=== PATIENT | female | born 1990 | race African-American/Black ===

== ENCOUNTER 2022-01-17 00:53 | Emergency (ER) | payer OTHER, SELFPAY ==
[2022-01-17 01:15] VITALS: BP 160/90; PULSE 109
[2022-01-17 01:50] VITALS: BP 150/74; PULSE 85; RESP 28; TEMP 36.7; O2SAT 100; BMI 33.3
[2022-01-17 01:50] LABS: Basophils Percent Auto 0.5 % (0-2); Eosinophils Absolute Auto 0.1 X10*3/uL (0.0-0.4); Eosinophils Percent Auto 1.4 % (0-4); Hemoglobin 12.6 g/dl (12.0-16.0); Imm Gran Abs Auto 0.01 X10*3/uL (0.00-0.03); Imm Gran Pct Auto 0.2 % (0.0-0.4); Lymphocytes Absolute Auto 2.2 X10*3/uL (1.2-4.9); Lymphocytes Percent Auto 34.9 % (20-40); MANUAL DIFF FLAG NO; Mean Corpuscular Hemoglobin 32.3 pg (27.0-33.0); Mean Corpuscular Volume 92.3 fL (80.0-98.0); Mean Platelet Volume 9.7 fL (9.4-12.3); Monocytes Absolute Auto 0.6 X10*3/uL (0.1-1.2); Monocytes Percent Auto 8.6 % (2-11); Neutrophils Absolute Auto 3.5 x10*3/uL (2.0-8.3); Neutrophils Percent Auto 54.4 % (45-73); Platelet Count 239 X10*3/uL (160-400); Red Cell Distribution Width 11.3 % (11.0-16.0); White Blood Count 6.4 X10*3/uL (4.8-10.8)
[2022-01-17 02:10] LABS: Troponin-I High Sensitivity < 3.5 ng/L (<3.5-17.0)
[2022-01-17 02:14] LABS: Anion Gap 15 (12-20); Blood Urea Nitrogen 14 mg/dL (9-16); Calcium 9.1 mg/dL (8.4-10.2); Carbon Dioxide 24 mmol/L (22-29); Chloride 103 mmol/L (96-108); Creatinine Clr Calc Pharmacy 85.3; Estimated Glomerular Filt Rate > 60; Glucose Fasting 176 mg/dL (60-99); Potassium 3.5 mmol/L (3.3-5.1); Sodium 138 mmol/L (135-145)
--- NOTE | 2022-01-17 03:08 | ECG_ITS ---
Test Reason : PALPATATION Blood Pressure : / mmHG Vent. Rate : 088 BPM Atrial Rate : 088 BPM P-R Int : 156 ms QRS Dur : 090 ms QT Int : 382 ms P-R-T Axes : 048 035 034 degrees QTc Int : 462 ms Normal sinus rhythm with sinus arrhythmia Normal ECG No previous ECGs available Referred By: Martha Fam Electronically Signed By:JET RICE
[2022-01-17 03:43] LABS: Thyroid Stimulating Hormone 1.25 uIU/mL (0.32-4.0)
[2022-01-17 04:47] VITALS: BP 155/74; PULSE 85; RESP 20; O2SAT 98
--- NOTE | 2022-01-17 06:04 | PC.NURSE ---
to note pt discloses to this RN that she consumed chocolate with marijuana in it pt does not normally use marijuana. pt denies other substance use at this time.
[2022-01-17 06:06] VITALS: PULSE 99
--- NOTE | 2022-01-17 06:14 | ED_ITS ---
HPI - General Adult General Chief complaint: General Medical Stated complaint: chest palpations Time Seen by Provider: 01/17/22 03:06 Source: patient Mode of arrival: ambulatory Limitations: no limitations History of Present Illness HPI narrative: Patient comes to the emergency room complaining of palpitations. Patient states that around 21:00 she ate an edible/THC. 3 hours later she started complaining of palpitations. Patient denies chest pain or shortness of breath. Related Data Allergies Allergy/AdvReac Type Severity Reaction Status Date / Time No Known Allergies Allergy Verified 01/17/22 03:07 Review of Systems Review of Systems: Constitutional : No Weight loss, No Fever, No Chills, No Night Sweats, No Fatigue, No Malaise ENT/Mouth : No Hearing loss, No Ear Pain, No Nasal Congestion, No Sinus Pain, No Hoarseness, No sore throat, No Rhinorrhea, No Swallowing Difficulty Eyes: No Eye Pain, No Swelling, No Redness, No Foreign Body, No Discharge, No Vision Changes Cardiovascular : No Chest Pain, No SOB, No Dyspnea on Exertion, No Orthopnea, No Edema, complaining of palpitations after consuming edible marijuana Respiratory : No Cough, No Sputum, No Wheezing, No Smoke Exposure, No Dyspnea Gastrointestinal : No Nausea, No Vomiting, No Diarrhea, No Constipation, No abdominal Pain, No Hematochezia, No Melena Genitourinary : no irregular bleeding, No Dysuria, No Urinary Frequency, No Hematuria, No Urinary Incontinence, No Urgency, No Flank Pain, No Urinary Flow Changes, No Hesitancy Musculoskeletal : No joint pain, No Myalgias, No Joint Swelling Skin : No Skin Lesions, No rash Neuro : No Weakness, No Numbness, No Paresthesias, No Loss of Consciousness, No Dizziness, No Headache Psych : No Anxiety/Panic, No Depression, No SI/HI/AH/VH, No Social Issues, Heme/Lymph: No Bruising, No Bleeding,No Lymphadenopathy Endocrine : No Polyuria, No Polydipsia, No Temperature Intolerance Physical Exam ED Vital Signs: Vital Signs - 24 hr 01/17/22 01:50 01/17/22 04:47 Temperature 98.1 F Pulse Rate 85 85 Respiratory Rate 28 H 20 Blood Pressure 150/74 H 155/74 H Pulse Oximetry 100 98 Oxygen Delivery Method Room Air Room Air BMI result Body Mass Index 33.3 Const Other: Appearance: Alert. Oriented X3. No acute distress. Eyes: Pupils equal, round and reactive to light. ENT: Pharynx normal. Neck: Normal inspection. Neck supple. No lymph nodes noted. No crepitus CVS: Normal heart rate and rhythm. Pulses normal. Normal S1 and S2 Respiratory: No respiratory distress. Breath sounds normal. No Wheezing. No rales Abdomen: Soft and nontender. No rigidity. No distention. Skin: Skin warm and dry. Normal skin color. Normal skin turgor. Extremities: No lower extremity edema. No Lacerations. No Rash Neuro: Oriented X 3. No motor deficit. No sensory deficit. Moving all extremities. No slurred speech. CN 2 through 12 grossly intact Psych: calm, cooperative, slightly anxious Course Course Course Narrative: I discussed with the patient that her side effects a likely secondary to the edible THC negative Discussed with the patient that she needs to be seen by her primary care physician to have a fasting blood glucose done Medical Decision Making Lab Data Result diagrams: 01/17/22 01:41 01/17/22 01:41 Labs: Lab Results 01/17/22 01/17/22 01/17/22 Range/Units 01:41 01:41 01:41 WBC 6.4 (4.8-10.8) X10*3/uL RBC 3.90 L (4.20-5.50) X10*6/uL Hgb 12.6 (12.0-16.0) g/dl Hct 36.0 L (37.0-47.0) % MCV 92.3 (80.0-98.0) fL MCH 32.3 (27.0-33.0) pg MCHC 35.0 (31.0-35.0) g/dl RDW 11.3 (11.0-16.0) % Plt Count 239 (160-400) X10*3/uL MPV 9.7 (9.4-12.3) fL Immature Gran % (Auto) 0.2 (0.0-0.4) % Neut % (Auto) 54.4 (45-73) % Lymph % (Auto) 34.9 (20-40) % [place] % (Auto) 8.6 (2-11) % Eos % (Auto) 1.4 (0-4) % Baso % (Auto) 0.5 (0-2) % Lymph # (Auto) 2.2 (1.2-4.9) X10*3/uL [place] # (Auto) 0.6 (0.1-1.2) X10*3/uL Eos # (Auto) 0.1 (0.0-0.4) X10*3/uL Baso # (Auto) 0.0 (0.0-0.2) X10*3/uL Abs Immat Gran (auto) 0.01 (0.00-0.03) X10*3/uL Absolute Neuts (auto) 3.5 (2.0-8.3) x10*3/uL Absolute Nucleated RBC 0.000 (0.0-0.012) X10*3/uL Nucleated RBC % (auto) 0.0 (0.0-0.2) /100WBC Sodium 138 (135-145) mmol/L Potassium 3.5 (3.3-5.1) mmol/L Chloride 103 (96-108) mmol/L Carbon Dioxide 24 (22-29) mmol/L Anion Gap 15 (12-20) BUN 14 (9-16) mg/dL Creatinine 0.96 (0.5-1.4) mg/dL Estim Creat Clear Calc 85.3 Estimated GFR > 60 Fasting Glucose 176 H (60-99) mg/dL Calcium 9.1 (8.4-10.2) mg/dL Troponin I High Sens < 3.5 (<3.5-17.0) ng/L TSH 1.25 (0.32-4.0) uIU/mL Discharge Plan Discharge Clinical Impression: Palpitation Patient Disposition: Home, Self-Care Instructions: Heart Palpitations (ED) Additional Instructions: Please follow-up with your primary care physician tomorrow. If you have any worsening or new symptoms, please return to the emergency room or call 911
== END 2022-01-17 06:31 | disposition home or self-care (01) ==
PROVIDERS: Emergency Provider Emergency Medicine
DX: R00.2 Palpitations (principal)
CPT/HCPCS: 36415; 80048; 84443; 84484; 85025; 93005; 99283; 99284

== ENCOUNTER 2022-05-17 10:06 | Emergency (ER) | payer OTHER, SELFPAY ==
--- NOTE | 2022-05-17 | ECG_ITS ---
Test Reason : CHEST PAIN Blood Pressure : / mmHG Vent. Rate : 098 BPM Atrial Rate : 098 BPM P-R Int : 148 ms QRS Dur : 084 ms QT Int : 372 ms P-R-T Axes : 059 041 026 degrees QTc Int : 474 ms Normal sinus rhythm Normal ECG When compared with ECG of 17-JAN-2022 01:38, No significant change was found Referred By: Generic ED Physician Electronically Signed By:VANESSA LIMA MD
[2022-05-17 10:19] VITALS: BP 151/72; PULSE 80; RESP 16; TEMP 36.6; O2SAT 100; BMI 29.7
[2022-05-17 10:31] LABS: MANUAL DIFF FLAG NO
[2022-05-17 10:34] LABS: Basophils Percent Auto 0.7 % (0-2); Eosinophils Absolute Auto 0.1 X10*3/uL (0.0-0.4); Eosinophils Percent Auto 1.2 % (0-4); Hematocrit 38.4 % (37.0-47.0); Hemoglobin 13.1 g/dl (12.0-16.0); Imm Gran Abs Auto 0.01 X10*3/uL (0.00-0.03); Imm Gran Pct Auto 0.2 % (0.0-0.4); Lymphocytes Absolute Auto 2.3 X10*3/uL (1.2-4.9); Lymphocytes Percent Auto 52.4 % (20-40); Mean Corpuscular HGB Conc 34.1 g/dl (31.0-35.0); Mean Corpuscular Hemoglobin 32.2 pg (27.0-33.0); Mean Corpuscular Volume 94.3 fL (80.0-98.0); Mean Platelet Volume 9.8 fL (9.4-12.3); Monocytes Absolute Auto 0.4 X10*3/uL (0.1-1.2); Neutrophils Absolute Auto 1.5 x10*3/uL (2.0-8.3); Neutrophils Percent Auto 35.5 % (45-73); Platelet Count 256 X10*3/uL (160-400); Red Blood Count 4.07 X10*6/uL (4.20-5.50); Red Cell Distribution Width 11.5 % (11.0-16.0); White Blood Count 4.3 X10*3/uL (4.8-10.8)
[2022-05-17 10:58] LABS: Troponin-I High Sensitivity < 3.5 ng/L (<3.5-17.0)
--- NOTE | 2022-05-17 11:32 | ED.CHESTPAIN ---
HPI - Chest Pain General Chief Complaint: Chest Pain Stated Complaint: Chest Discomfort Time Seen by Provider: 05/17/22 11:31 Source: patient Mode of arrival: ambulatory Limitations: no limitations History of Present Illness HPI narrative: 32-year-old female who presents emergency department for evaluation of palpitations. Patient states she woke up this morning and felt fine. She states she then went downstairs and was preparing breakfast. At around 08:30 hours she developed a tightness in her chest and felt her heart racing. She states that she could feel her heart beating she felt like she was skipping beats. She felt lightheaded as if she was going to pass out, she developed shortness of breath and diaphoresis. She denied nausea or vomiting. She states that both hands felt numb. She denied perioral numbness. The patient states that she has been having palpitations over the past 4 months and she states that the initial palpitations were triggered after she ate a THC edible chocolate. She states she did have childhood ice cream to eat last night. She does not use caffeine. She states she has discussed her palpitations with her PCP who told her that they are related to anxiety. Related Data Previous Rx's Medication Instructions Recorded metoprolol succinate 25 mg 12.5 mg PO DAILY #30 tabs 05/17/22 tablet,extended release 24 hr Allergies Allergy/AdvReac Type Severity Reaction Status Date / Time No Known Allergies Allergy Verified 01/17/22 03:07 Review of Systems Review of Systems: Yes all other systems are reviewed and are negative [facility] Past Medical History [facility] Narrative: Past medical history: None. Past surgical history: 5 years prior. Social history: She denies tobacco use. She occasionally drinks alcohol. She denies drug use. Social History Social History Advance Directives: No Physical Exam Vital Signs: Vital Signs: Last Vital Signs Temp 99.0 F 05/17/22 11:37 Pulse 80 05/17/22 11:37 Resp 16 05/17/22 11:37 BP 136/70 05/17/22 11:37 Pulse Ox 93 05/17/22 11:37 O2 Del Method 05/17/22 11:37 BMI result Body Mass Index 29.7 Const: General: cooperative and no acute distress Orientation/consciousness: oriented to person and oriented to place Limitations: no limitations HEENT: Head: Yes normal to inspection, Yes normocephalic and Yes atraumatic Ears: external ears normal General nose exam: Normal external nose present Face and sinus: Yes normal facial exam Mouth: Normal oral and palatal mucosa present Throat: Yes posterior oropharynx normal Eyes: General: appearance normal, both eyes and all related structures Pupils: Equal, round and reactive pupils present Neck: Neck: Yes normal visual inspection, Yes no lymphadenopathy, Yes trachea midline and Yes supple Chest: Chest palpation & inspection: normal inspection of the chest and normal palpation of entire chest wall Resp: Effort & Inspection: normal respiratory effort and able to speak in complete sentences Auscultation: clear to auscultation bilaterally Cardio: Rate: regular rate Rhythm: regular rhythm Heart sounds: S1 normal heart sound present, S2 normal heart sound present and no murmurs GI: Inspection: Yes normal to inspection Palpation (GI): Soft to palpation, nontender and no guarding Auscultation: normal bowel sounds : General: Yes no CVA tenderness Back/Spine/Pelvis: Back: no CVA tenderness Skin: General skin exam: no rashes or lesions noted Neuro: General: oriented to person and oriented to place Cranial nerves: Yes CN's II-XII intact bilaterally and Yes Equal, round and reactive pupils present Cognition (Neuro): normal cognition Motor exam (neuro): 5/5 motor strength present throughout Extrem: General: Yes normal to inspection Psych: Appearance: grossly normal Speech and movement: Normal speech and movement present Affect: normal affect Attitude: cooperative Thought process: Normal thought process present Thought content: Normal thought content present Course Course Course Narrative: 32-year-old female who presents emergency department for evaluation of chest pain, shortness of breath, lightheadedness, palpitations which began this morning at 08:30 hours. The last approximately 5 minutes. Patient has had similar presentations in the past. She was seen in the emergency department on 01/17/2022 at that time, the patient ate an edible THC products which most likely caused her symptoms. Patient's vital signs initially revealed an elevated blood pressure of 151/72, this improved to 1 30/70 without treatment . vital signs were otherwise normal. Physical examination was unremarkable. 1221: Patient's 12 EKG was unremarkable. While I was in the room evaluating the patient my did notice PVCs on the monitor and the patient was feeling palpitations that correlated with PVCs. At this time I believe that the patient has benign palpitations however I do believe she should have an outpatient workup to include echocardiogram and Holter monitor. The patient was discharged home, I did give her the name of our on-call machine brusher for follow-up or she can follow-up with PCP. 1249: Medical Decision Making Medical Decision Making Differential Diagnoses: Differential diagnosis (Myocardial infarction, myocardial ischemia, PACs, PVCs, tachy arrhythmias) Consideration of admission/observation: Consideration of Admission/Observation (Yes) Lab Attestation: I reviewed the patient's lab results. (WBC low 4300, high sensitive troponin I troponin below detectable limits.) Independent interpretation of EKG, rhythm strip, radiology study: Independent interp EKG,rhythm strip, radiology study I performed an independent interpretation of the: EKG (1012: Normal sinus rhythm rate of 98, normal HI, QRS and QTC intervals, no ST segment elevation, no ST segment depression, no PACs, no PVCs, no significant T-wave abnormalities.) and Rhythm Strip (1157: Sinus tachycardia with a rate of 100, 2 PVCs-noted also on the monitor and the patient was symptomatic, she felt the palpitations) My interpretation is Prescription medication was considered but ultimately not given after discussion with patient/family. (e.g., pain medication, antiviral, antibiotic): Prescriptions considered but not given (Beta-hua) Discharge Plan Discharge Clinical Impression: Heart palpitations, Symptomatic PVCs Patient Disposition: Home, Self-Care Instructions: Heart Palpitations (DC) Additional Instructions: Your blood work was normal. Your high sensitivity troponin I (a marker of heart damage/heart attack) was below detectable limits, you have no troponin in your blood in this is reassuring suggesting that you did not have any heart damage or heart attack today On the monitor you are having premature ventricular contractions (PVCs) which your feeling. This is most likely the cause of your palpitations You should have a workup for her palpitations as an outpatient to include echocardiogram and Holter monitor. Take metoprolol 25 mg pills, take 1/2 pill once a day, this will slow your heart rate down and hopefully prevent you from having palpitations. Either your doctor can do this workup or you can see our machine brusher on-call, Dr. Mckinney. Follow-up with your doctor in 2 days. Please return to the emergency department if your symptoms get worse or if you develop any symptoms that are concerning to you. Prescriptions: New metoprolol succinate 25 mg tablet extended release 24 hr 12.5 mg PO DAILY Qty: 30 0RF Referrals: Kirk Mckinney MD [Physician] - 2 weeks (Symptomatic palpitation)
[2022-05-17 11:33] LABS: Anion Gap 12 (12-20); Blood Urea Nitrogen 9 mg/dL (9-16); Calcium 9.2 mg/dL (8.4-10.2); Carbon Dioxide 24 mmol/L (22-29); Chloride 103 mmol/L (96-108); Creatinine Clr Calc Pharmacy 103.4; Estimated Glomerular Filt Rate > 60; Glucose Random 107 mg/dL (60-115); Sodium 135 mmol/L (135-145)
--- OUTSIDE RECORDS SUMMARY | 2022-05-17 11:34 | XMS_ITS | Continuity of Care Document ---
:1990 Author Organization [facility] Address [address] [place] [id number] Care Team Providers Name Role Phone Ellie Conner MD Primary Care Physician Encounter [facility] Date(s): 03/06/20 - 06/05/[address] [id number] Discharge Disposition: A-D/C Home Attending Physician: Ellie Conner MD Admitting Physician: Ellie Conner MD Referring Physician: Ellie Conner MD
[2022-05-17 11:37] VITALS: BP 136/70; PULSE 80; RESP 16; TEMP 37.2; O2SAT 93
== END 2022-05-17 12:56 | disposition home or self-care (01) ==
PROVIDERS: Emergency Provider Emergency Medicine Emergency Medical Services
DX: R07.89 Other chest pain (principal); R00.2 Palpitations; I49.3 Ventricular premature depolarization; Z79.899 Other long term (current) drug therapy
CPT/HCPCS: 36415; 80048; 84484; 85025; 93005; 99283; 99284

== ENCOUNTER 2022-06-05 05:26 | Emergency (ER) | payer OTHER, SELFPAY ==
--- NOTE | 2022-06-05 | ECG_ITS ---
Test Reason : UPPER EXTREMITY NUMBNESS Blood Pressure : / mmHG Vent. Rate : 064 BPM Atrial Rate : 064 BPM P-R Int : 142 ms QRS Dur : 092 ms QT Int : 398 ms P-R-T Axes : 038 053 029 degrees QTc Int : 410 ms Normal sinus rhythm Normal ECG When compared with ECG of 17-MAY-2022 10:12, Vent. rate has decreased BY 34 BPM QT has shortened Referred By: Generic ED Physician Electronically Signed By:VANESSA LIMA MD
--- NOTE | ~2022-06-05 | XR_ITS ---
EXAMINATION: XR CHEST CLINICAL INFORMATION: Chest pain COMPARISON: None TECHNIQUE: Frontal view of the chest was obtained. FINDINGS: No significant abnormality is noted involving the heart, lungs, mediastinum, bony thorax or soft tissues. XR/XR chest 1V IMPRESSION: Unremarkable examination.
--- NOTE | ~2022-06-05 | CT_ITS ---
EXAMINATION: CT HEAD WITHOUT CONTRAST CLINICAL INFORMATION: Head pressure and pain COMPARISON: None TECHNIQUE: Contiguous axial imaging was performed from the skull base to vertex without intravenous administration of contrast. This CT examination was performed using dose optimization techniques as appropriate, variously including the following: *Automated exposure control *Adjustment of mA and/or kV according to patient size (this includes techniques or standardized protocols for targeted exams where dose is matched to indication/reason for exam; i.e. extremities or head) *Use of iterative reconstruction technique DLP: 702 mGy-cm FINDINGS: There is no evidence of acute intracranial hemorrhage or territorial infarction. No abnormal mass effect or midline shift is seen. Sanchez to white matter differentiation is well preserved. No extra-axial fluid collections are identified. No hydrocephalus. No significant volume loss. There is no abnormal attenuation within the brain parenchyma. No acute osseous or soft tissue abnormality. Mild mucosal thickening within right sphenoid chamber right maxillary sinus. CT/CT head/brain wo IV con IMPRESSION: No acute intracranial pathology.
[2022-06-05 05:34] VITALS: BP 143/83; PULSE 76; RESP 18; TEMP 36.7; O2SAT 100; BMI 30.1
[2022-06-05 06:07] LABS: MANUAL DIFF FLAG NO
[2022-06-05 06:24] LABS: Alanine Aminotransferase 9 U/L (0-31); Albumin Level 4.3 g/dL (3.5-5.0); Alkaline Phosphatase 30 U/L (39-117); Anion Gap 11 (12-20); Aspartate Amino Transferase 13 U/L (5-31); Bilirubin Total 0.5 mg/dL (0.0-1.0); Blood Urea Nitrogen 11 mg/dL (9-16); Calcium 9.3 mg/dL (8.4-10.2); Carbon Dioxide 24 mmol/L (22-29); Chloride 108 mmol/L (96-108); Estimated Glomerular Filt Rate > 60; Glucose Random 106 mg/dL (60-115); Potassium 3.7 mmol/L (3.3-5.1); Sodium 139 mmol/L (135-145); Total Protein 7.5 g/dL (6.5-8.0)
[2022-06-05 06:26] LABS: Basophils Percent Auto 0.5 % (0-2); Hematocrit 37.9 % (37.0-47.0); Hemoglobin 13.1 g/dl (12.0-16.0); Lymphocytes Absolute Auto 1.5 X10*3/uL (1.2-4.9); Lymphocytes Percent Auto 37.4 % (20-40); Mean Corpuscular HGB Conc 34.6 g/dl (31.0-35.0); Mean Corpuscular Hemoglobin 32.1 pg (27.0-33.0); Mean Corpuscular Volume 92.9 fL (80.0-98.0); Mean Platelet Volume 9.7 fL (9.4-12.3); Monocytes Absolute Auto 0.3 X10*3/uL (0.1-1.2); Monocytes Percent Auto 8.7 % (2-11); Neutrophils Percent Auto 52.4 % (45-73); Platelet Count 273 X10*3/uL (160-400); Red Blood Count 4.08 X10*6/uL (4.20-5.50); Red Cell Distribution Width 11.2 % (11.0-16.0); White Blood Count 3.9 X10*3/uL (4.8-10.8)
[2022-06-05 06:29] LABS: Troponin-I High Sensitivity < 3.5 ng/L (<3.5-17.0)
[2022-06-05 07:22] VITALS: BP 163/107; PULSE 87; PULSE 96; RESP 18; O2SAT 100
--- NOTE | 2022-06-05 07:54 | PC.NURSE ---
pt received in bed A/O x3 RAMOS follows commands, speech clear and coherent. Pt relates 6 month hx of intermittent chest tightness, palpitations. Seen by Dr Cole. Will continue to monitor
[2022-06-05 08:03] LABS: IDNOW Serial# 16C4AD1C; Influenza A Negative (Negative); Influenza B2 Negative (Negative)
[2022-06-05 08:04] LABS: COVID-19 Test Negative (Negative); IDNOW Serial# BCCEAD1C
[2022-06-05 08:22] LABS: C Reactive Protein < 0.04 mg/dL (< or = 0.50); Rheumatoid Factor < 13.0 IU/mL (<15.0)
[2022-06-05 09:01] LABS: Erythrocyte Sedimentation Rate 7 MM/HR (0-20)
--- NOTE | 2022-06-05 09:22 | ED.CHESTPAIN ---
HPI - Chest Pain General Chief Complaint: Chest Pain Stated Complaint: pain in arms and legs Time Seen by Provider: 06/05/22 06:48 Source: patient Mode of arrival: ambulatory History of Present Illness HPI narrative: 32-year-old female who comes in with 2 months of intermittent chest tightness that she states involves her left arm left leg and at times has resulted in a crawling feeling on the left side of her head but she denies any visual disturbance, fevers, chills, unexplained weight loss, night sweats, any family or personal history of similar symptoms, she denies any history of sickle cell or sickle cell trait and denies any GI or symptoms. Patient states that she has been evaluated by her primary care provider as well as having gone to [facility] for evaluation. Related Data Previous Rx's Medication Instructions Recorded metoprolol succinate 25 mg 12.5 mg PO DAILY #30 tabs 05/17/22 tablet,extended release 24 hr hydroxyzine HCl 25 mg tablet 25 mg PO BID PRN anxiety #10 tabs 06/05/22 Allergies Allergy/AdvReac Type Severity Reaction Status Date / Time No Known Allergies Allergy Verified 01/17/22 03:07 Review of Systems Review of Systems: Pertinent positives and negatives as stated in HPI. PMFSH Past Medical History Source: nursing notes reviewed Social History Social History Advance Directives: No Advance Directives Information Provided: Yes Physical Exam Vital Signs: Vital Signs: Last Vital Signs Temp 98.1 F 06/05/22 05:34 Pulse 87 06/05/22 07:22 Resp 18 06/05/22 07:22 BP 163/107 H 06/05/22 07:22 Pulse Ox 100 06/05/22 07:22 O2 Del Method 06/05/22 07:22 BMI result Body Mass Index 30.1 VITAL SIGNS: Reviewed. GENERAL: Well developed, well nourished, in no acute distress. HEAD: Normocephalic/atraumatic EYES: PERRLA, EOMI EARS: Ext canals without abnormality, TMs non-bulging and non-erythematous NOSE: Nares patent bilateral OROPHARYNX: no oral lesions noted, posterior pharynx clear and non-erythematous without noted tonsillar enlargement/erythema/exudates NECK: Supple, no adenopathy LUNGS: Normal breath sounds. No adventitious sounds or accessory muscle use. SpO2<100> CARDIOVASCULAR: Regular rate and rhythm without noted murmurs, no JVD or lower extremity edema. ABDOMEN: Soft, non-tender, non-distended with bowel sounds. MUSCULOSKELETAL: No tenderness, deformities, or effusions noted on gross inspection. EXTREMITIES: No cyanosis, clubbing or edema. SKIN: Inspection of the skin reveals no rashes, ulcerations, jaundice, pallor, or petechiae. NEUROLOGIC: Alert and oriented x 4. Strength and sensation to light touch were grossly intact x 4, no tremor. Medical Decision Making Medical Decision Making [facility] Narrative: 32-year-old female with history and clinical presentation that appears to be partially associated with a component of anxiety given that she has been evaluated at [facility] as well as by her primary care provider. I did review her previous visit here to the emergency room from 05/17/2022 without acute findings and when compared to today's lab work there are no significant changes. TSH on last visit was noted to be within normal limits and multiple inflammatory markers such as ESR, CRP as well as RF for ordered here today and are within normal limits. Patient has no focal deficits and on review of imaging studies my interpretation is in agreement with the radiologist's impression. All results and possibilities discussed with the patient at bedside and she was discharged home in stable condition with recommendation to follow-up with her primary care provider. Differential Diagnosis Inflammatory etiology, clinical suspicion for infection/anemia/cardiopulmonary etiology Lab Data [facility] Lab Attestation statement: I reviewed the patient's lab results. Please see above for discussion Result Diagrams: 06/05/22 06:03 06/05/22 06:03 Labs: Lab Results 06/05/22 06/05/22 06/05/22 Range/Units 06:03 06:03 06:03 WBC 3.9 L (4.8-10.8) X10*3/uL RBC 4.08 L (4.20-5.50) X10*6/uL Hgb 13.1 (12.0-16.0) g/dl Hct 37.9 (37.0-47.0) % MCV 92.9 (80.0-98.0) fL MCH 32.1 (27.0-33.0) pg MCHC 34.6 (31.0-35.0) g/dl RDW 11.2 (11.0-16.0) % Plt Count 273 (160-400) X10*3/uL MPV 9.7 (9.4-12.3) fL Immature Gran % (Auto) 0.0 (0.0-0.4) % Neut % (Auto) 52.4 (45-73) % Lymph % (Auto) 37.4 (20-40) % [place] % (Auto) 8.7 (2-11) % Eos % (Auto) 1.0 (0-4) % Baso % (Auto) 0.5 (0-2) % Lymph # (Auto) 1.5 (1.2-4.9) X10*3/uL [place] # (Auto) 0.3 (0.1-1.2) X10*3/uL Eos # (Auto) 0.0 (0.0-0.4) X10*3/uL Baso # (Auto) 0.0 (0.0-0.2) X10*3/uL Abs Immat Gran (auto) 0.00 (0.00-0.03) X10*3/uL Absolute Neuts (auto) 2.0 (2.0-8.3) x10*3/uL Absolute Nucleated RBC 0.000 (0.0-0.012) X10*3/uL Nucleated RBC % (auto) 0.0 (0.0-0.2) /100WBC ESR (0-20) MM/HR Sodium 139 (135-145) mmol/L Potassium 3.7 (3.3-5.1) mmol/L Chloride 108 (96-108) mmol/L Carbon Dioxide 24 (22-29) mmol/L Anion Gap 11 L (12-20) BUN 11 (9-16) mg/dL Creatinine 0.77 (0.5-1.4) mg/dL Estim Creat Clear Calc 104.0 Estimated GFR > 60 Random Glucose 106 (60-115) mg/dL Calcium 9.3 (8.4-10.2) mg/dL Total Bilirubin 0.5 (0.0-1.0) mg/dL AST 13 (5-31) U/L ALT 9 (0-31) U/L Alkaline Phosphatase 30 L (39-117) U/L Troponin I High Sens < 3.5 (<3.5-17.0) ng/L C-Reactive Protein < 0.04 (< or = 0.50) mg/dL Total Protein 7.5 (6.5-8.0) g/dL Albumin 4.3 (3.5-5.0) g/dL Rheumatoid Factor < 13.0 (<15.0) IU/mL COVID-19 (YANA) (Negative) COVID-19 Clin Com Influenza Type A (TAB) (Negative) Influenza Type B (TAB) (Negative) Influenza A & B Note 06/05/22 06/05/22 06/05/22 Range/Units 06:03 07:41 07:41 WBC (4.8-10.8) X10*3/uL RBC (4.20-5.50) X10*6/uL Hgb (12.0-16.0) g/dl Hct (37.0-47.0) % MCV (80.0-98.0) fL MCH (27.0-33.0) pg MCHC (31.0-35.0) g/dl RDW (11.0-16.0) % Plt Count (160-400) X10*3/uL MPV (9.4-12.3) fL Immature Gran % (Auto) (0.0-0.4) % Neut % (Auto) (45-73) % Lymph % (Auto) (20-40) % [place] % (Auto) (2-11) % Eos % (Auto) (0-4) % Baso % (Auto) (0-2) % Lymph # (Auto) (1.2-4.9) X10*3/uL [place] # (Auto) (0.1-1.2) X10*3/uL Eos # (Auto) (0.0-0.4) X10*3/uL Baso # (Auto) (0.0-0.2) X10*3/uL Abs Immat Gran (auto) (0.00-0.03) X10*3/uL Absolute Neuts (auto) (2.0-8.3) x10*3/uL Absolute Nucleated RBC (0.0-0.012) X10*3/uL Nucleated RBC % (auto) (0.0-0.2) /100WBC ESR 7 (0-20) MM/HR Sodium (135-145) mmol/L Potassium (3.3-5.1) mmol/L Chloride (96-108) mmol/L Carbon Dioxide (22-29) mmol/L Anion Gap (12-20) BUN (9-16) mg/dL Creatinine (0.5-1.4) mg/dL Estim Creat Clear Calc Estimated GFR Random Glucose (60-115) mg/dL Calcium (8.4-10.2) mg/dL Total Bilirubin (0.0-1.0) mg/dL AST (5-31) U/L ALT (0-31) U/L Alkaline Phosphatase (39-117) U/L Troponin I High Sens (<3.5-17.0) ng/L C-Reactive Protein (< or = 0.50) mg/dL Total Protein (6.5-8.0) g/dL Albumin (3.5-5.0) g/dL Rheumatoid Factor (<15.0) IU/mL COVID-19 (YANA) Negative (Negative) COVID-19 Clin Com See Note Influenza Type A (TAB) Negative (Negative) Influenza Type B (TAB) Negative (Negative) Influenza A & B Note See Note Independent Interpretation I performed an independent interpretation of an: EKG Interpretation: Normal sinus rhythm, HR-64, no STEMI, AK/QRS/QTC is within normal limits Radiology Impression Radiologist Impression: My interpretation is in agreement with radiologist impression. External Record Review External record reviewed: Outpatient record and Prior outpatient labs Discharge Plan Discharge Clinical Impression: Atypical chest pain, Anxiety Patient Disposition: Home, Self-Care Instructions: Noncardiac Chest Pain (ED), Anxiety (ED) Additional Instructions: 1. Resume all home medications as prescribed. 2. I recommend that you follow-up with your primary care provider by calling the office today and setting up an appointment for re-evaluation. I suspect you may have a component of anxiety which is very common in a significant portion of the population. I would certainly discuss this with your primary care provider. Return to the ER for worsening symptoms. Prescriptions: New hydroxyzine HCl 25 mg tablet 25 mg PO BID PRN (Reason: anxiety) Qty: 10 0RF No Action metoprolol succinate 25 mg tablet extended release 24 hr 12.5 mg PO DAILY Qty: 30 0RF Referrals: Jesi Espitia MD [Primary Care Provider] - (Suspect ALYSSA?)
[2022-06-05 09:39] VITALS: BP 112/70; PULSE 61; RESP 11; TEMP 37; O2SAT 100
== END 2022-06-05 09:51 | disposition home or self-care (01) ==
PROVIDERS: Emergency Provider Student in an Organized Health Care Education/Training Program; PCP Internal Medicine
DX: F41.1 Generalized anxiety disorder (principal); F43.0 Acute stress reaction; R07.89 Other chest pain; M79.602 Pain in left arm; M79.601 Pain in right arm; R51.9 Headache, unspecified; M79.605 Pain in left leg; M79.604 Pain in right leg; Z79.899 Other long term (current) drug therapy; Z20.822 Contact with and (suspected) exposure to COVID-19
CPT/HCPCS: 36415; 70450; 71045; 80053; 84484; 85025; 85652; 86140; 86431; 87502; 87635; 93005; 99284

== ENCOUNTER → 2022-06-12 09:01 | Outpatient (BNVA) | payer OTHER, SELFPAY | PROVIDERS: Visit Provider Internal Medicine Cardiovascular Disease | DX: Z13.89 Encounter for screening for other disorder (principal) ==

== ENCOUNTER → 2022-06-18 11:00 | Outpatient (REF) | payer OTHER, SELFPAY ==
--- NOTE | 2022-06-18 11:03 | HM_ITS ---
* Total monitoring time 7 days. * Underlying rhythm is sinus. Average ventricular rate 69/Min. Range 47 to 130/Min. * Occasional PVCs. Low burden. One couplet. * No significant pauses or AV blocks. * Patient symptoms including tiredness, fatigue, chest discomfort, palpitations, skipping associated with sinus rhythm. MTDD
== END ==
LOC: HO.CARD 11:00
PROVIDERS: Visit Provider Internal Medicine Cardiovascular Disease
DX: I49.3 Ventricular premature depolarization (principal)
CPT/HCPCS: 93242

== ENCOUNTER 2022-06-23 05:41 | Emergency (ER) | payer OTHER, SELFPAY ==
--- NOTE | ~2022-06-23 | XR_ITS ---
EXAMINATION: XR CHEST CLINICAL INFORMATION: Chest pain COMPARISON: None TECHNIQUE: Frontal view of the chest was obtained. FINDINGS: No significant abnormality is noted involving the heart, lungs, mediastinum, bony thorax or soft tissues. XR/XR chest 1V IMPRESSION: Unremarkable chest examination.
[2022-06-23 05:42] VITALS: BP 160/88; PULSE 81; RESP 16; O2SAT 99; BMI 29.2
[2022-06-23 06:13] LABS: MANUAL DIFF FLAG NO
[2022-06-23 06:21] LABS: Basophils Percent Auto 0.2 % (0-2); Eosinophils Absolute Auto 0.1 X10*3/uL (0.0-0.4); Eosinophils Percent Auto 0.8 % (0-4); Hematocrit 35.2 % (37.0-47.0); Hemoglobin 12.4 g/dl (12.0-16.0); Imm Gran Abs Auto 0.02 X10*3/uL (0.00-0.03); Imm Gran Pct Auto 0.3 % (0.0-0.4); Lymphocytes Absolute Auto 1.6 X10*3/uL (1.2-4.9); Lymphocytes Percent Auto 24.7 % (20-40); Mean Corpuscular HGB Conc 35.2 g/dl (31.0-35.0); Mean Corpuscular Hemoglobin 32.2 pg (27.0-33.0); Mean Corpuscular Volume 91.4 fL (80.0-98.0); Mean Platelet Volume 9.7 fL (9.4-12.3); Monocytes Absolute Auto 0.5 X10*3/uL (0.1-1.2); Monocytes Percent Auto 7.5 % (2-11); Neutrophils Absolute Auto 4.3 x10*3/uL (2.0-8.3); Neutrophils Percent Auto 66.5 % (45-73); Platelet Count 238 X10*3/uL (160-400); Red Blood Count 3.85 X10*6/uL (4.20-5.50); Red Cell Distribution Width 11.2 % (11.0-16.0); White Blood Count 6.4 X10*3/uL (4.8-10.8)
[2022-06-23 06:29] LABS: Anion Gap 13 (12-20); Blood Urea Nitrogen 8 mg/dL (9-16); Carbon Dioxide 22 mmol/L (22-29); Chloride 108 mmol/L (96-108); Creatinine Clr Calc Pharmacy 109.7; Estimated Glomerular Filt Rate > 60; Glucose Random 114 mg/dL (60-115); Potassium 3.4 mmol/L (3.3-5.1); Sodium 140 mmol/L (135-145)
[2022-06-23 06:39] LABS: Troponin-I High Sensitivity < 3.5 ng/L (<3.5-17.0)
--- NOTE | 2022-06-23 07:06 | PC.NURSE ---
Patient resting comfortably no distress noted, LS clear AOx 4 neuros intact patient has laboratory monitor on reports palitations and chest discomfort some tingling left arm denies Nausea/vomiting. No facial droop or deviation of tongue grasp equal 5/5 no drift noted will CTM
--- NOTE | 2022-06-23 07:19 | ECG_ITS ---
Test Reason : CHEST PAIN Blood Pressure : / mmHG Vent. Rate : 079 BPM Atrial Rate : 079 BPM P-R Int : 132 ms QRS Dur : 090 ms QT Int : 384 ms P-R-T Axes : 015 045 032 degrees QTc Int : 440 ms Normal sinus rhythm Normal ECG When compared with ECG of 05-JUN-2022 05:54, No significant change was found Referred By: Jacqueline Alexandre Electronically Signed By:VANESSA LIMA MD
--- NOTE | 2022-06-23 07:20 | ED_ITS ---
HPI - Chest Pain General Chief Complaint: Chest Pain Stated Complaint: CP Time Seen by Provider: 06/23/22 06:56 Source: patient Mode of arrival: ambulatory Limitations: no limitations History of Present Illness HPI narrative: 32-year-old female came in for evaluation of chest tightness, shortness of breath, feeling palpitation, feels anxious patient feels doom is pending. Patient now is following with a world geography teacher for palpitation has a Holter monitor supposed to be read on 06/27/2022. The patient also scheduled to have a stress echo this week by the world geography teacher. Patient appear very anxious had a previous presentation to the ED for similar presentation and symptoms had unremarkable workup in the past patient was started on metoprolol 12.5 mg daily by the world geography teacher and patient declined any effect to the medication or improvement of her symptoms total time of patient's symptoms about 8 months ago. Patient declined any family history of premature coronary artery disease or sudden cardiac in the family. Related Data Home Medications Medication Instructions Recorded Confirmed omeprazole 40 mg capsule,delayed 40 mg PO DAILY 06/12/22 06/12/22 release Previous Rx's Medication Instructions Recorded metoprolol succinate 25 mg 25 mg PO DAILY #30 tabs 06/22/22 tablet,extended release 24 hr Allergies Allergy/AdvReac Type Severity Reaction Status Date / Time No Known Allergies Allergy Verified 01/17/22 03:07 Review of Systems Review of Systems: All other systems are reviewed and are negative Constitutional: Reports as per HPI and Reports no additional constitutional complaints Eyes: Reports as per HPI and Reports no additional eye complaints Reports system reviewed and no additional complaints, except as documented Cardiovascular: Reports as per HPI and Reports no additional cardiovascular complaints Respiratory: Reports as per HPI and Reports no additional respiratory complaints Gastrointestinal: Reports as per HPI and Reports no additional gastrointestinal complaints Genitourinary: Reports no additional female genitourinary complaints Musculoskeletal: Reports no additional musculoskeletal complaints Skin/Breast: Reports system reviewed and no additional complaints, except as docu Psychiatric: Reports no additional psychiatric complaints Endocrine: Reports no additional endocrine complaints Hematologic/Lymphatic: Reports no additional hematologic/lymphatic complaints Allergic/Immunologic: Reports no additional allergic/immunologic complaints Reports system reviewed and no additional complaints, except as documented and Reports Abnormal speech present [facility] Family History Family History Mother No problems noted. Social History Social History Alcohol intake: unknown Patient Tobacco Use Status: Never used Tobacco Smoked in Last 30 Days: No Advance Directives: No Advance Directives Information Provided: No Physical Exam Vital Signs: Vital Signs: Last Vital Signs Temp 98.7 F 06/23/22 08:12 Pulse 65 06/23/22 08:12 Resp 20 06/23/22 08:12 BP 112/79 06/23/22 08:12 Pulse Ox 100 06/23/22 08:12 O2 Del Method 06/23/22 08:12 BMI result Body Mass Index 29.2 Course Course Course Narrative: 32-year-old female came in for evaluation of palpitation, patient is on Holter monitor and schedule for stress echo by Dr. Mckinney from Cardiology Department this week. Patient has unremarkable workup while she is in the emergency department patient with HEART score of 0 with no concern of ACS at this point Patient has O2 sat of 100% with normal respiratory rate no lower extremity swelling or tenderness, no recent travel, no prolonged immobilization, no history of PE or DVT in the past. Will reassure the patient and discharged to follow-up with her Cardiology appointment. Medical Decision Making Differential Diagnosis Differential Diagnoses: The differential diagnosis associated with the presenta tion includes (Dysrhythmia, PVCs, electrolyte disturbance, ACS, pneumonia, pleural effusion.) Lab Data MDM Lab Attestation statement: I reviewed the patient's lab results. 06/23/22 06:09 06/23/22 06:09 Labs: Lab Results 06/23/22 06/23/22 06/23/22 Range/Units 06:09 06:09 06:09 WBC 6.4 (4.8-10.8) X10*3/uL RBC 3.85 L (4.20-5.50) X10*6/uL Hgb 12.4 (12.0-16.0) g/dl Hct 35.2 L (37.0-47.0) % MCV 91.4 (80.0-98.0) fL MCH 32.2 (27.0-33.0) pg MCHC 35.2 H (31.0-35.0) g/dl RDW 11.2 (11.0-16.0) % Plt Count 238 (160-400) X10*3/uL MPV 9.7 (9.4-12.3) fL Immature Gran % (Auto) 0.3 (0.0-0.4) % Neut % (Auto) 66.5 (45-73) % Lymph % (Auto) 24.7 (20-40) % [place] % (Auto) 7.5 (2-11) % Eos % (Auto) 0.8 (0-4) % Baso % (Auto) 0.2 (0-2) % Lymph # (Auto) 1.6 (1.2-4.9) X10*3/uL [place] # (Auto) 0.5 (0.1-1.2) X10*3/uL Eos # (Auto) 0.1 (0.0-0.4) X10*3/uL Baso # (Auto) 0.0 (0.0-0.2) X10*3/uL Abs Immat Gran (auto) 0.02 (0.00-0.03) X10*3/uL Absolute Neuts (auto) 4.3 (2.0-8.3) x10*3/uL Absolute Nucleated RBC 0.000 (0.0-0.012) X10*3/uL Nucleated RBC % (auto) 0.0 (0.0-0.2) /100WBC Sodium 140 (135-145) mmol/L Potassium 3.4 (3.3-5.1) mmol/L Chloride 108 (96-108) mmol/L Carbon Dioxide 22 (22-29) mmol/L Anion Gap 13 (12-20) BUN 8 L (9-16) mg/dL Creatinine 0.72 (0.5-1.4) mg/dL Estim Creat Clear Calc 109.7 Estimated GFR > 60 Random Glucose 114 (60-115) mg/dL Calcium 9.0 (8.4-10.2) mg/dL Troponin I High Sens < 3.5 (<3.5-17.0) ng/L Independent Interpretation I performed an independent interpretation of an: EKG (Normal sinus rhythm at 79 beats per minutes, normal intervals, no ST-T changes, no change from previous EKG.) and Plain X-Ray (No acute pathology.) Radiology Impression Discussion of test interpretation with radiology: I have reviewed the radiologist's reading. Discharge Plan Discharge Clinical Impression: PVCs (premature ventricular contractions), Anxiety about health Patient Disposition: Home, Self-Care Instructions: Anxiety (ED) Prescriptions: No Action metoprolol succinate 25 mg tablet extended release 24 hr 25 mg PO DAILY Qty: 30 0RF omeprazole 40 mg capsule,delayed release(DR/EC) 40 mg PO DAILY Referrals: Jesi Espitia MD [Primary Care Provider] -
[2022-06-23 08:12] VITALS: BP 112/79; PULSE 65; RESP 20; TEMP 37.1; O2SAT 100
== END 2022-06-23 09:17 | disposition home or self-care (01) ==
PROVIDERS: Internal Medicine; Emergency Provider Emergency Medicine; PCP Internal Medicine
DX: R07.89 Other chest pain (principal); R06.02 Shortness of breath; R00.2 Palpitations; Z79.899 Other long term (current) drug therapy
CPT/HCPCS: 36415; 71045; 80048; 84484; 85025; 93005; 99284

== ENCOUNTER → 2022-06-27 08:12 | Outpatient (REF) | payer OTHER, SELFPAY ==
--- NOTE | 2022-06-27 08:18 | CA_ITS ---
Transthoracic Echocardiogram Patient (Last, First, Middle): Whitley Chiu B Gender: Female Date of : 1990 Age: 32 Procedure Date: 06/27/2022 Procedure Type: Transthoracic Echocardiogram Location: OP Height: 170.18 cm Weight: 72.58 kg BSA: 1.84 m2 Heart Rate: 62 bpm BP: 105 / 65 mmHg Regulatory Law Specialist: SHAJI Referring MD: Kirk Mckinney MD Director Federal: Kirk Mckinney MD Symptoms: I49.3 - Ventricular premature depolarization Study Quality: Fair ECG Rhythm: Sinus with PVC Conclusions: - Normal study Findings Left Ventricle Normal left ventricular size, thickness, and systolic function. The visually estimated ejection fraction is between 60-65%. Diastolic function is normal for age. Right Ventricle Normal right ventricular cavity size and systolic function. Atria Both atria are normal in size. There is no evidence of interatrial shunt. Aortic Valve Normal aortic valve structure and function. There is no aortic valve stenosis. There is no aortic valve regurgitation. Mitral Valve Normal mitral valve structure and function. There is no mitral valve regurgitation. There is no mitral valve stenosis. Pulmonic Valve The pulmonic valve is likely normal. There is trace pulmonic valve regurgitation. Tricuspid Valve Normal tricuspid valve structure. There is trace tricuspid valve regurgitation. The right ventricular systolic pressure is normal. The right ventricular systolic pressure is 19 mmHg. Normal right atrial pressure. There is no evidence of pulmonary hypertension. Great Vessels All visible segments of the aorta are normal in size. The pulmonary artery was not well visualized. Venous The inferior vena cava is normal in size and collapses greater than 50% with inspiration. Pericardium/Pleural There is no evidence of pericardial effusion. Prior Study Comparison No prior study available for comparison. Measurements 2D Linear Measurements IVSd: 0.69 0.6-0.9/0.6-1.0 cm LVIDd: 4.90 3.9-5.3/4.2-5.9 cm LVIDd Index: 2.66 2.4-3.2/2.2-3.1 cm/m2 LVIDs: 3.37 2.0-3.6 cm LVPWd: 0.85 0.7-1.1 cm LA Diam: 3.40 2.7-3.8/3.0-4.0 cm LAIDs Index: 1.85 1.5-2.3 cm/m2 LV Mass: 155.16 67-162/88-224 g LV Mass Index: 84.33 43-95/49-115 g/m2 LVOT Diam: 2.00 3.0+(-)1.3 cm 2D Systolic Function EF 4C: 55.50 >55% EF 2C: 55.10 >55% Mitral Valve MV Pk E: 0.95 MV PK A: 0.58 MV Decel Time: 211.00 E/A: 1.60 E'Lateral: 16.30 E'Medial: 11.60 E/E' Med: 8.20 E/E' Lat: 5.80 PHT: 62.00 MVA PHT: 3.55 Decel Norman: 4.49 Aortic Valve AoV Pk Maulik: 1.43 AoV Mn Maulik: 1.02 AoV VTI: 0.32 AoV Pk Grad: 8.00 Aov Mn Grad: 5.00 DARSHANA Cont.VTI: 2.43 LVOT LVOT Pk Maulik: 1.15 LVOT Mn Maulik: 0.83 LVOT VTI: 0.25 LVOT Pk Grad: 5.00 LVOT Mn Grad: 3.00 LVOT Diam: 2.00 LVOT Area: 3.14 Diastolic Function MV Pk E: 0.95 MV Pk A: 0.58 E/A: 1.60 E'Medial: 11.60 E/E' Med: 8.20 E' Laterial: 16.30 E/E' Lat: 5.80 Right Ventricle TAPSE (mm): 26.50 TVS' Maulik: 14.90 Tricuspid Valve TR Pk Maulik: 1.98 TR Pk Grad: 16.00 RA Press: 3.00 RVSP: 19.00 Great Vessels Aorta Sinus of Valsalva: 2.80 2.0-3.5 cm Ao Asc: 2.80 2.1-3.4 cm Pulmonary Valve PV Pk Maulik: 1.10 Peak PV Grad: 5.00 Updated in Other Vendor System with Status of Final Kirk Mckinney MD electronically signed on 06/28/2022 9:44:18 AM with status of Final
--- NOTE | 2022-06-27 08:18 | CA_ITS ---
Acquisition Time: 2022-06-27 09:11:52 Total Exercise Time: 00:10:02 Test Indications: CP Medications: METOPROLOL OMEPRAZOLE Protocol: JERAMY Max HR: 181 BPM 95% of Pred: 189 BPM Max BP: 194/068 mmHG Max Work Load: 11.7 METS Exercise stress test with exercise 10 min 2 sec of Jeramy protocol, achieving 96% MPHR, with 7/10 chest tightness at baseline which resolved with exercise, with isolated PVCs mostly at baseline and in recovery, with hypertensive response to exercise with BP at baseline 122/80 and max BP 194/68, without EKG changes meeting criteria for ischemia. In recovery BP returned to 124/72. Test reviewed with Dr Mckinney Referred By: Kirk Mckinney Overread By: RAÚL TALLEY
== END ==
LOC: HO.CARD 08:12
PROVIDERS: Visit Provider Internal Medicine Cardiovascular Disease
DX: R07.89 Other chest pain (principal); I49.3 Ventricular premature depolarization
CPT/HCPCS: 93017; 93306

== ENCOUNTER 2022-07-02 19:01 | Emergency (ER) | payer OTHER, SELFPAY ==
--- NOTE | ~2022-07-02 | XR_ITS ---
EXAMINATION: XR CHEST CLINICAL INFORMATION: Chest pain COMPARISON: Chest x-ray on 06/23/2022 TECHNIQUE: 2 views of the chest were obtained. FINDINGS: No significant abnormality is noted involving the heart, lungs, mediastinum, bony thorax or soft tissues. XR/XR chest 2V IMPRESSION: Unremarkable examination.
[2022-07-02 19:08] VITALS: BP 156/95; PULSE 106; RESP 16; TEMP 36.6; O2SAT 99; BMI 26.3
--- NOTE | 2022-07-02 19:09 | ECG_ITS ---
Test Reason : chest pressure Blood Pressure : / mmHG Vent. Rate : 080 BPM Atrial Rate : 080 BPM P-R Int : 152 ms QRS Dur : 096 ms QT Int : 384 ms P-R-T Axes : 034 038 037 degrees QTc Int : 442 ms Normal sinus rhythm with sinus arrhythmia Normal ECG When compared with ECG of 23-JUN-2022 05:52, No significant changes seen Referred By: Pily Husain Electronically Signed By:JET RICE
--- NOTE | 2022-07-02 19:11 | ED.CHESTPAIN ---
HPI - Chest Pain General Chief Complaint: Chest Pain <NICOLAS Quiñones - Last Filed: 07/02/22 19:14> Stated Complaint: chest pain/ numbness in face and left arm <NICOLAS Quiñones - Last Filed: 07/02/22 19:14> Time Seen by Provider: 07/02/22 20:50 <NICOLAS Quiñones - Last Filed: 07/02/22 19:14> Source: patient <Martha Fam MD - Last Filed: 07/02/22 22:00> Mode of arrival: ambulatory <Martha Fam MD - Last Filed: 07/02/22 22:00> Limitations: no limitations <Martha Fam MD - Last Filed: 07/02/22 22:00> History of Present Illness HPI narrative: Patient comes to emergency room complaining intermittent acute on chronic left-sided facial numbness tingling, palpitations. Patient states that she has been having the symptoms for 5-6 months. Patient is very anxious about her symptoms. At this time, patient has no palpitations chest pain shortness of breath or numbness and tingling. <Martha Fam MD - Last Filed: 07/02/22 22:00> Related Data Home Medications: Home Medications Medication Instructions Recorded Confirmed omeprazole 40 mg capsule,delayed 40 mg PO DAILY 06/12/22 06/12/22 release Previous Rx's Medication Instructions Recorded metoprolol succinate 25 mg 25 mg PO DAILY #30 tabs 06/22/22 tablet,extended release 24 hr <NICOLAS Quiñones - Last Filed: 07/02/22 19:14> Allergies/Adverse Reactions: Allergies Allergy/AdvReac Type Severity Reaction Status Date / Time No Known Allergies Allergy Verified 01/17/22 03:07 <NICOLAS Quiñones - Last Filed: 07/02/22 19:14> Review of Systems Review of Systems: Constitutional : No Weight loss, No Fever, No Chills, No Night Sweats, No Fatigue, No Malaise ENT/Mouth : No Hearing loss, No Ear Pain, No Nasal Congestion, No Sinus Pain, No Hoarseness, No sore throat, No Rhinorrhea, No Swallowing Difficulty Eyes: No Eye Pain, No Swelling, No Redness, No Foreign Body, No Discharge, No Vision Changes Cardiovascular : No Chest Pain, No SOB, No Dyspnea on Exertion, No Orthopnea, No Edema, complaining of occasional strong palpitations Respiratory : No Cough, No Sputum, No Wheezing, No Smoke Exposure, No Dyspnea Gastrointestinal : No Nausea, No Vomiting, No Diarrhea, No Constipation, No abdominal Pain, No Hematochezia, No Melena Genitourinary : no irregular bleeding, No Dysuria, No Urinary Frequency, No Hematuria, No Urinary Incontinence, No Urgency, No Flank Pain, No Urinary Flow Changes, No Hesitancy Musculoskeletal : No joint pain, No Myalgias, No Joint Swelling Skin : No Skin Lesions, No rash Neuro : No Weakness, No Numbness, No Paresthesias, No Loss of Consciousness, No Dizziness, No Headache Psych : No Anxiety/Panic, No Depression, No SI/HI/AH/VH, No Social Issues, Heme/Lymph: No Bruising, No Bleeding,No Lymphadenopathy Endocrine : No Polyuria, No Polydipsia, No Temperature Intolerance <Martha Fam MD - Last Filed: 07/02/22 22:00> [facility] Past Medical History Medical History: Medical History (Updated 07/02/22 @ 21:59 by Martha Fam MD) PVCs (premature ventricular contractions) <NICOLAS Quiñones - Last Filed: 07/02/22 19:14> Family History Family History: Family History Mother No problems noted. <NICOLAS Quiñones - Last Filed: 07/02/22 19:14> Social History Social History: Social History Alcohol intake: unknown Patient Tobacco Use Status: Never used Tobacco Advance Directives: No Advance Directives Information Provided: Yes Patient : No <NICOLAS Quiñones - Last Filed: 07/02/22 19:14> Physical Exam Vital Signs: Vital Signs: Last Vital Signs Temp 97.9 F 07/02/22 19:08 Pulse 71 07/02/22 20:38 Resp 14 07/02/22 20:38 BP 134/74 07/02/22 20:38 Pulse Ox 98 07/02/22 20:38 O2 Del Method 07/02/22 20:38 BMI result Body Mass Index 26.3 <NICOLAS Quiñones - Last Filed: 07/02/22 19:14> Vital Signs: Last Vital Signs Temp 97.9 F 07/02/22 19:08 Pulse 71 07/02/22 20:38 Resp 14 07/02/22 20:38 BP 134/74 07/02/22 20:38 Pulse Ox 98 07/02/22 20:38 O2 Del Method 07/02/22 20:38 BMI result Body Mass Index 26.3 <Martha Fam MD - Last Filed: 07/02/22 22:00> Const: Other: Appearance: Alert. Oriented X3. No acute distress. Eyes: Pupils equal, round and reactive to light. ENT: Pharynx normal. Neck: Normal inspection. Neck supple. No lymph nodes noted. No crepitus CVS: Normal heart rate and rhythm. Pulses normal. Normal S1 and S2 Respiratory: No respiratory distress. Breath sounds normal. No Wheezing. No rales Abdomen: Soft and nontender. No rigidity. No distention. Skin: Skin warm and dry. Normal skin color. Normal skin turgor. Extremities: No lower extremity edema. No Lacerations. No Rash Neuro: Oriented X 3. No motor deficit. No sensory deficit. Moving all extremities. No slurred speech. CN 2 through 12 grossly intact Psych: calm, cooperative, normal affect <Martha Fam MD - Last Filed: 07/02/22 22:00> Course Course Course Narrative: RME - 32 yo female presenting to the ER for acute on chronic left sided chest pain along with left sided facial numbness and numbness of the left arm and palpitations. Worse today with dizziness and SOB. Seen by Dr. Mckinney on 06/12 (had PVCs with concern for possible SVT vs inappropriate sinus tachycardia) and has follow up appointment with him tomorrow. Had ECHO on 06/27 that was normal. HR 90-110 in triage. anxious and feels like she is going to pass out. Labs, EKG, CXR ordered. <NICOLAS Quiñones - Last Filed: 07/02/22 19:14> Medical Decision Making Medical Decision Making MDM Narrative: -I discussed with the patient her lab results, unremarkable, troponin negative. TSH within normal limits -patient has no symptoms of pulmonary embolism, wells criteria score for pulmonary embolism is 0 -patient has an appointment pending tomorrow with Dr. Mckinney. Patient states that she already had a Holter monitor which she used for 7 days. -at this time, heart rate controlled, sinus rhythm, patient will be discharged and she has a follow-up appointment with Cardiology tomorrow. -patient is very anxious about her condition. I believe that there is a strong component of anxiety <Martha Fam MD - Last Filed: 07/02/22 22:00> Differential Diagnosis Differential Diagnoses: The differential diagnosis associated with the presentation includes (Palpitations, hyperthyroidism, ACS, anxiety) <Martha Fam MD - Last Filed: 07/02/22 22:00> Lab Data MDM Lab Attestation statement: I reviewed the patient's lab results. <Martha Fam MD - Last Filed: 07/02/22 22:00> Result Diagrams: 07/02/22 19:42 07/02/22 19:42 <NICOLAS Quiñones - Last Filed: 07/02/22 19:14> Labs: Lab Results 07/02/22 07/02/22 07/02/22 Range/Units 19:42 19:42 19:42 WBC 5.0 (4.8-10.8) X10*3/uL RBC 3.62 L (4.20-5.50) X10*6/uL Hgb 11.6 L (12.0-16.0) g/dl Hct 33.1 L (37.0-47.0) % MCV 91.4 (80.0-98.0) fL MCH 32.0 (27.0-33.0) pg MCHC 35.0 (31.0-35.0) g/dl RDW 11.3 (11.0-16.0) % Plt Count 258 (160-400) X10*3/uL MPV 9.9 (9.4-12.3) fL Immature Gran % (Auto) 0.0 (0.0-0.4) % Neut % (Auto) 44.5 L (45-73) % Lymph % (Auto) 44.6 H (20-40) % Atlantic % (Auto) 9.3 (2-11) % Eos % (Auto) 1.0 (0-4) % Baso % (Auto) 0.6 (0-2) % Lymph # (Auto) 2.3 (1.2-4.9) X10*3/uL Atlantic # (Auto) 0.5 (0.1-1.2) X10*3/uL Eos # (Auto) 0.1 (0.0-0.4) X10*3/uL Baso # (Auto) 0.0 (0.0-0.2) X10*3/uL Abs Immat Gran (auto) 0.00 (0.00-0.03) X10*3/uL Absolute Neuts (auto) 2.2 (2.0-8.3) x10*3/uL Absolute Nucleated RBC 0.000 (0.0-0.012) X10*3/uL Nucleated RBC % (auto) 0.0 (0.0-0.2) /100WBC PT (10.0-13.1) SEC INR (0.9-1.1) APTT (26.0-36.4) SEC Sodium 139 (135-145) mmol/L Potassium 3.4 (3.3-5.1) mmol/L Chloride 105 (96-108) mmol/L Carbon Dioxide 24 (22-29) mmol/L Anion Gap 13 (12-20) BUN 13 (9-16) mg/dL Creatinine 0.80 (0.5-1.4) mg/dL Estim Creat Clear Calc 108.5 Estimated GFR > 60 Random Glucose 108 (60-115) mg/dL Calcium 9.3 (8.4-10.2) mg/dL Magnesium 1.8 (1.6-2.6) mg/dL Total Bilirubin 0.2 (0.0-1.0) mg/dL Direct Bilirubin < 0.2 (0.0-0.5) mg/dL AST 12 (5-31) U/L ALT 9 (0-31) U/L Alkaline Phosphatase 30 L (39-117) U/L Troponin I High Sens < 3.5 (<3.5-17.0) ng/L Total Protein 6.9 (6.5-8.0) g/dL Albumin 4.1 (3.5-5.0) g/dL TSH (0.32-4.0) uIU/mL Urine Color Urine Appearance Urine pH (5.0-9.0) Ur Specific Ramsey (1.005-1.025) Urine Protein (Neg-Trace) mg/dL Urine Glucose (UA) (Negative) mg/dL Urine Ketones (Negative) mg/dL Urine Blood (Negative) Urine Nitrite (Negative) Ur Leukocyte Esterase (Negative) Urine Opiates Screen (Not Detect) Urine Fentanyl Screen (Not Detect) Ur Barbiturates Screen (Not Detect) Ur Phencyclidine Scrn (Not Detect) Ur Amphetamines Screen (Not Detect) U Benzodiazepines Scrn (Not Detect) Urine Cocaine Screen (Not Detect) U Marijuana (THC) Screen (Not Detect) COVID-19 (YANA) (Negative) COVID-19 Clin Com 07/02/22 07/02/22 07/02/22 Range/Units 19:42 19:42 19:42 WBC (4.8-10.8) X10*3/uL RBC (4.20-5.50) X10*6/uL Hgb (12.0-16.0) g/dl Hct (37.0-47.0) % MCV (80.0-98.0) fL MCH (27.0-33.0) pg MCHC (31.0-35.0) g/dl RDW (11.0-16.0) % Plt Count (160-400) X10*3/uL MPV (9.4-12.3) fL Immature Gran % (Auto) (0.0-0.4) % Neut % (Auto) (45-73) % Lymph % (Auto) (20-40) % Atlantic % (Auto) (2-11) % Eos % (Auto) (0-4) % Baso % (Auto) (0-2) % Lymph # (Auto) (1.2-4.9) X10*3/uL Atlantic # (Auto) (0.1-1.2) X10*3/uL Eos # (Auto) (0.0-0.4) X10*3/uL Baso # (Auto) (0.0-0.2) X10*3/uL Abs Immat Gran (auto) (0.00-0.03) X10*3/uL Absolute Neuts (auto) (2.0-8.3) x10*3/uL Absolute Nucleated RBC (0.0-0.012) X10*3/uL Nucleated RBC % (auto) (0.0-0.2) /100WBC PT 12.6 (10.0-13.1) SEC INR 1.1 (0.9-1.1) APTT 27.3 (26.0-36.4) SEC Sodium (135-145) mmol/L Potassium (3.3-5.1) mmol/L Chloride (96-108) mmol/L Carbon Dioxide (22-29) mmol/L Anion Gap (12-20) BUN (9-16) mg/dL Creatinine (0.5-1.4) mg/dL Estim Creat Clear Calc Estimated GFR Random Glucose (60-115) mg/dL Calcium (8.4-10.2) mg/dL Magnesium (1.6-2.6) mg/dL Total Bilirubin (0.0-1.0) mg/dL Direct Bilirubin (0.0-0.5) mg/dL AST (5-31) U/L ALT (0-31) U/L Alkaline Phosphatase (39-117) U/L Troponin I High Sens (<3.5-17.0) ng/L Total Protein (6.5-8.0) g/dL Albumin (3.5-5.0) g/dL TSH 1.88 (0.32-4.0) uIU/mL Urine Color Urine Appearance Urine pH (5.0-9.0) Ur Specific Ramsey (1.005-1.025) Urine Protein (Neg-Trace) mg/dL Urine Glucose (UA) (Negative) mg/dL Urine Ketones (Negative) mg/dL Urine Blood (Negative) Urine Nitrite (Negative) Ur Leukocyte Esterase (Negative) Urine Opiates Screen (Not Detect) Urine Fentanyl Screen (Not Detect) Ur Barbiturates Screen (Not Detect) Ur Phencyclidine Scrn (Not Detect) Ur Amphetamines Screen (Not Detect) U Benzodiazepines Scrn (Not Detect) Urine Cocaine Screen (Not Detect) U Marijuana (THC) Screen (Not Detect) COVID-19 (YANA) Negative (Negative) COVID-19 Clin Com See Note 07/02/22 07/02/22 Range/Units 21:27 21:27 WBC (4.8-10.8) X10*3/uL RBC (4.20-5.50) X10*6/uL Hgb (12.0-16.0) g/dl Hct (37.0-47.0) % MCV (80.0-98.0) fL MCH (27.0-33.0) pg MCHC (31.0-35.0) g/dl RDW (11.0-16.0) % Plt Count (160-400) X10*3/uL MPV (9.4-12.3) fL Immature Gran % (Auto) (0.0-0.4) % Neut % (Auto) (45-73) % Lymph % (Auto) (20-40) % Atlantic % (Auto) (2-11) % Eos % (Auto) (0-4) % Baso % (Auto) (0-2) % Lymph # (Auto) (1.2-4.9) X10*3/uL Atlantic # (Auto) (0.1-1.2) X10*3/uL Eos # (Auto) (0.0-0.4) X10*3/uL Baso # (Auto) (0.0-0.2) X10*3/uL Abs Immat Gran (auto) (0.00-0.03) X10*3/uL Absolute Neuts (auto) (2.0-8.3) x10*3/uL Absolute Nucleated RBC (0.0-0.012) X10*3/uL Nucleated RBC % (auto) (0.0-0.2) /100WBC PT (10.0-13.1) SEC INR (0.9-1.1) APTT (26.0-36.4) SEC Sodium (135-145) mmol/L Potassium (3.3-5.1) mmol/L Chloride (96-108) mmol/L Carbon Dioxide (22-29) mmol/L Anion Gap (12-20) BUN (9-16) mg/dL Creatinine (0.5-1.4) mg/dL Estim Creat Clear Calc Estimated GFR Random Glucose (60-115) mg/dL Calcium (8.4-10.2) mg/dL Magnesium (1.6-2.6) mg/dL Total Bilirubin (0.0-1.0) mg/dL Direct Bilirubin (0.0-0.5) mg/dL AST (5-31) U/L ALT (0-31) U/L Alkaline Phosphatase (39-117) U/L Troponin I High Sens (<3.5-17.0) ng/L Total Protein (6.5-8.0) g/dL Albumin (3.5-5.0) g/dL TSH (0.32-4.0) uIU/mL Urine Color Yellow Urine Appearance Clear Urine pH 7.0 (5.0-9.0) Ur Specific Ramsey <= 1.005 (1.005-1.025) Urine Protein Negative (Neg-Trace) mg/dL Urine Glucose (UA) Negative (Negative) mg/dL Urine Ketones Negative (Negative) mg/dL Urine Blood Negative (Negative) Urine Nitrite Negative (Negative) Ur Leukocyte Esterase Negative (Negative) Urine Opiates Screen Not Detected (Not Detect) Urine Fentanyl Screen Not Detected (Not Detect) Ur Barbiturates Screen Not Detected (Not Detect) Ur Phencyclidine Scrn Not Detected (Not Detect) Ur Amphetamines Screen Not Detected (Not Detect) U Benzodiazepines Scrn Not Detected (Not Detect) Urine Cocaine Screen Not Detected (Not Detect) U Marijuana (THC) Screen Not Detected (Not Detect) COVID-19 (YANA) (Negative) COVID-19 Clin Com <NICOLAS Quiñones - Last Filed: 07/02/22 19:14> Lab Results 07/02/22 07/02/22 07/02/22 Range/Units 19:42 19:42 19:42 WBC 5.0 (4.8-10.8) X10*3/uL RBC 3.62 L (4.20-5.50) X10*6/uL Hgb 11.6 L (12.0-16.0) g/dl Hct 33.1 L (37.0-47.0) % MCV 91.4 (80.0-98.0) fL MCH 32.0 (27.0-33.0) pg MCHC 35.0 (31.0-35.0) g/dl RDW 11.3 (11.0-16.0) % Plt Count 258 (160-400) X10*3/uL MPV 9.9 (9.4-12.3) fL Immature Gran % (Auto) 0.0 (0.0-0.4) % Neut % (Auto) 44.5 L (45-73) % Lymph % (Auto) 44.6 H (20-40) % Atlantic % (Auto) 9.3 (2-11) % Eos % (Auto) 1.0 (0-4) % Baso % (Auto) 0.6 (0-2) % Lymph # (Auto) 2.3 (1.2-4.9) X10*3/uL Atlantic # (Auto) 0.5 (0.1-1.2) X10*3/uL Eos # (Auto) 0.1 (0.0-0.4) X10*3/uL Baso # (Auto) 0.0 (0.0-0.2) X10*3/uL Abs Immat Gran (auto) 0.00 (0.00-0.03) X10*3/uL Absolute Neuts (auto) 2.2 (2.0-8.3) x10*3/uL Absolute Nucleated RBC 0.000 (0.0-0.012) X10*3/uL Nucleated RBC % (auto) 0.0 (0.0-0.2) /100WBC PT (10.0-13.1) SEC INR (0.9-1.1) APTT (26.0-36.4) SEC Sodium 139 (135-145) mmol/L Potassium 3.4 (3.3-5.1) mmol/L Chloride 105 (96-108) mmol/L Carbon Dioxide 24 (22-29) mmol/L Anion Gap 13 (12-20) BUN 13 (9-16) mg/dL Creatinine 0.80 (0.5-1.4) mg/dL Estim Creat Clear Calc 108.5 Estimated GFR > 60 Random Glucose 108 (60-115) mg/dL Calcium 9.3 (8.4-10.2) mg/dL Magnesium 1.8 (1.6-2.6) mg/dL Total Bilirubin 0.2 (0.0-1.0) mg/dL Direct Bilirubin < 0.2 (0.0-0.5) mg/dL AST 12 (5-31) U/L ALT 9 (0-31) U/L Alkaline Phosphatase 30 L (39-117) U/L Troponin I High Sens < 3.5 (<3.5-17.0) ng/L Total Protein 6.9 (6.5-8.0) g/dL Albumin 4.1 (3.5-5.0) g/dL TSH (0.32-4.0) uIU/mL Urine Color Urine Appearance Urine pH (5.0-9.0) Ur Specific Ramsey (1.005-1.025) Urine Protein (Neg-Trace) mg/dL Urine Glucose (UA) (Negative) mg/dL Urine Ketones (Negative) mg/dL Urine Blood (Negative) Urine Nitrite (Negative) Ur Leukocyte Esterase (Negative) Urine Opiates Screen (Not Detect) Urine Fentanyl Screen (Not Detect) Ur Barbiturates Screen (Not Detect) Ur Phencyclidine Scrn (Not Detect) Ur Amphetamines Screen (Not Detect) U Benzodiazepines Scrn (Not Detect) Urine Cocaine Screen (Not Detect) U Marijuana (THC) Screen (Not Detect) COVID-19 (YANA) (Negative) COVID-19 Clin Com 07/02/22 07/02/22 07/02/22 Range/Units 19:42 19:42 19:42 WBC (4.8-10.8) X10*3/uL RBC (4.20-5.50) X10*6/uL Hgb (12.0-16.0) g/dl Hct (37.0-47.0) % MCV (80.0-98.0) fL MCH (27.0-33.0) pg MCHC (31.0-35.0) g/dl RDW (11.0-16.0) % Plt Count (160-400) X10*3/uL MPV (9.4-12.3) fL Immature Gran % (Auto) (0.0-0.4) % Neut % (Auto) (45-73) % Lymph % (Auto) (20-40) % Atlantic % (Auto) (2-11) % Eos % (Auto) (0-4) % Baso % (Auto) (0-2) % Lymph # (Auto) (1.2-4.9) X10*3/uL Atlantic # (Auto) (0.1-1.2) X10*3/uL Eos # (Auto) (0.0-0.4) X10*3/uL Baso # (Auto) (0.0-0.2) X10*3/uL Abs Immat Gran (auto) (0.00-0.03) X10*3/uL Absolute Neuts (auto) (2.0-8.3) x10*3/uL Absolute Nucleated RBC (0.0-0.012) X10*3/uL Nucleated RBC % (auto) (0.0-0.2) /100WBC PT 12.6 (10.0-13.1) SEC INR 1.1 (0.9-1.1) APTT 27.3 (26.0-36.4) SEC Sodium (135-145) mmol/L Potassium (3.3-5.1) mmol/L Chloride (96-108) mmol/L Carbon Dioxide (22-29) mmol/L Anion Gap (12-20) BUN (9-16) mg/dL Creatinine (0.5-1.4) mg/dL Estim Creat Clear Calc Estimated GFR Random Glucose (60-115) mg/dL Calcium (8.4-10.2) mg/dL Magnesium (1.6-2.6) mg/dL Total Bilirubin (0.0-1.0) mg/dL Direct Bilirubin (0.0-0.5) mg/dL AST (5-31) U/L ALT (0-31) U/L Alkaline Phosphatase (39-117) U/L Troponin I High Sens (<3.5-17.0) ng/L Total Protein (6.5-8.0) g/dL Albumin (3.5-5.0) g/dL TSH 1.88 (0.32-4.0) uIU/mL Urine Color Urine Appearance Urine pH (5.0-9.0) Ur Specific Ramsey (1.005-1.025) Urine Protein (Neg-Trace) mg/dL Urine Glucose (UA) (Negative) mg/dL Urine Ketones (Negative) mg/dL Urine Blood (Negative) Urine Nitrite (Negative) Ur Leukocyte Esterase (Negative) Urine Opiates Screen (Not Detect) Urine Fentanyl Screen (Not Detect) Ur Barbiturates Screen (Not Detect) Ur Phencyclidine Scrn (Not Detect) Ur Amphetamines Screen (Not Detect) U Benzodiazepines Scrn (Not Detect) Urine Cocaine Screen (Not Detect) U Marijuana (THC) Screen (Not Detect) COVID-19 (YANA) Negative (Negative) COVID-19 Clin Com See Note 07/02/22 07/02/22 Range/Units 21:27 21:27 WBC (4.8-10.8) X10*3/uL RBC (4.20-5.50) X10*6/uL Hgb (12.0-16.0) g/dl Hct (37.0-47.0) % MCV (80.0-98.0) fL MCH (27.0-33.0) pg MCHC (31.0-35.0) g/dl RDW (11.0-16.0) % Plt Count (160-400) X10*3/uL MPV (9.4-12.3) fL Immature Gran % (Auto) (0.0-0.4) % Neut % (Auto) (45-73) % Lymph % (Auto) (20-40) % Atlantic % (Auto) (2-11) % Eos % (Auto) (0-4) % Baso % (Auto) (0-2) % Lymph # (Auto) (1.2-4.9) X10*3/uL Atlantic # (Auto) (0.1-1.2) X10*3/uL Eos # (Auto) (0.0-0.4) X10*3/uL Baso # (Auto) (0.0-0.2) X10*3/uL Abs Immat Gran (auto) (0.00-0.03) X10*3/uL Absolute Neuts (auto) (2.0-8.3) x10*3/uL Absolute Nucleated RBC (0.0-0.012) X10*3/uL Nucleated RBC % (auto) (0.0-0.2) /100WBC PT (10.0-13.1) SEC INR (0.9-1.1) APTT (26.0-36.4) SEC Sodium (135-145) mmol/L Potassium (3.3-5.1) mmol/L Chloride (96-108) mmol/L Carbon Dioxide (22-29) mmol/L Anion Gap (12-20) BUN (9-16) mg/dL Creatinine (0.5-1.4) mg/dL Estim Creat Clear Calc Estimated GFR Random Glucose (60-115) mg/dL Calcium (8.4-10.2) mg/dL Magnesium (1.6-2.6) mg/dL Total Bilirubin (0.0-1.0) mg/dL Direct Bilirubin (0.0-0.5) mg/dL AST (5-31) U/L ALT (0-31) U/L Alkaline Phosphatase (39-117) U/L Troponin I High Sens (<3.5-17.0) ng/L Total Protein (6.5-8.0) g/dL Albumin (3.5-5.0) g/dL TSH (0.32-4.0) uIU/mL Urine Color Yellow Urine Appearance Clear Urine pH 7.0 (5.0-9.0) Ur Specific Ramsey <= 1.005 (1.005-1.025) Urine Protein Negative (Neg-Trace) mg/dL Urine Glucose (UA) Negative (Negative) mg/dL Urine Ketones Negative (Negative) mg/dL Urine Blood Negative (Negative) Urine Nitrite Negative (Negative) Ur Leukocyte Esterase Negative (Negative) Urine Opiates Screen Not Detected (Not Detect) Urine Fentanyl Screen Not Detected (Not Detect) Ur Barbiturates Screen Not Detected (Not Detect) Ur Phencyclidine Scrn Not Detected (Not Detect) Ur Amphetamines Screen Not Detected (Not Detect) U Benzodiazepines Scrn Not Detected (Not Detect) Urine Cocaine Screen Not Detected (Not Detect) U Marijuana (THC) Screen Not Detected (Not Detect) COVID-19 (YANA) (Negative) COVID-19 Clin Com <Martha Fam MD - Last Filed: 07/02/22 22:00> Independent Interpretation I performed an independent interpretation of an: EKG (Normal sinus rhythm rate 80, no ST segment depression or elevation, T-wave inversion, QTC 442) and Plain X-Ray <Martha Fam MD - Last Filed: 07/02/22 22:00> Interpretation: My interpretation of x-ray: Unremarkable, no infiltrates, no pneumothorax <Martha Fam MD - Last Filed: 07/02/22 22:00> Radiology Impression Discussion of test interpretation with radiology: I have reviewed the radiologist's reading. <Martha Fam MD - Last Filed: 07/02/22 22:00> Radiologist Impression: FINDINGS: No significant abnormality is noted involving the heart, lungs, mediastinum, bony thorax or soft tissues. XR/XR chest 2V IMPRESSION: Unremarkable examination. <Martha Fam MD - Last Filed: 07/02/22 22:00> External Record Review External record reviewed: Office record (Dr Mckinney's records from 06/12/22, metoprolol was discontinued) <Martha Fam MD - Last Filed: 07/02/22 22:00> Prescription Management I considered prescription management with: Other (I considered starting metoprolol. However, patient has had metoprolol in the past. I reviewed Dr. Mckinney's notes from cardiology. Patient was asked to stop metoprolol, seems that she was on a lower dose and was not helping her much anyways. Tomorrow she has an appoint with Dr. Mckinney, they can dis) <Martha Fam MD - Last Filed: 07/02/22 22:00> Discharge Plan Discharge Clinical Impression: PVCs (premature ventricular contractions) <NICOLAS Quiñones - Last Filed: 07/02/22 19:14> Patient Disposition: Home, Self-Care <NICOLAS Quiñones - Last Filed: 07/02/22 19:14> Instructions: Heart Palpitations (DC) <NICOLAS Quiñones - Last Filed: 07/02/22 19:14> Additional Instructions: Please follow-up with your primary care physician tomorrow. If you have any worsening or new symptoms, please return to the emergency room or call 911 <NICOLAS Quiñones - Last Filed: 07/02/22 19:14> Prescriptions: No Action metoprolol succinate 25 mg tablet extended release 24 hr 25 mg PO DAILY Qty: 30 0RF omeprazole 40 mg capsule,delayed release(DR/EC) 40 mg PO DAILY <NICOLAS Quiñones - Last Filed: 07/02/22 19:14>
[2022-07-02 19:46] LABS: MANUAL DIFF FLAG NO
[2022-07-02 19:48] LABS: Basophils Percent Auto 0.6 % (0-2); Eosinophils Absolute Auto 0.1 X10*3/uL (0.0-0.4); Hematocrit 33.1 % (37.0-47.0); Hemoglobin 11.6 g/dl (12.0-16.0); Lymphocytes Absolute Auto 2.3 X10*3/uL (1.2-4.9); Lymphocytes Percent Auto 44.6 % (20-40); Mean Corpuscular Volume 91.4 fL (80.0-98.0); Mean Platelet Volume 9.9 fL (9.4-12.3); Monocytes Absolute Auto 0.5 X10*3/uL (0.1-1.2); Monocytes Percent Auto 9.3 % (2-11); Neutrophils Absolute Auto 2.2 x10*3/uL (2.0-8.3); Neutrophils Percent Auto 44.5 % (45-73); Platelet Count 258 X10*3/uL (160-400); Red Blood Count 3.62 X10*6/uL (4.20-5.50); Red Cell Distribution Width 11.3 % (11.0-16.0)
[2022-07-02 19:54] LABS: INTERNATIONAL NORM RATIO 1.1 (0.9-1.1); Prothrombin Time 12.6 SEC (10.0-13.1)
[2022-07-02 19:56] LABS: Partial Thromboplastin Time 27.3 SEC (26.0-36.4)
[2022-07-02 20:11] LABS: Alanine Aminotransferase 9 U/L (0-31); Albumin Level 4.1 g/dL (3.5-5.0); Alkaline Phosphatase 30 U/L (39-117); Anion Gap 13 (12-20); Aspartate Amino Transferase 12 U/L (5-31); Bilirubin Direct < 0.2 mg/dL (0.0-0.5); Bilirubin Total 0.2 mg/dL (0.0-1.0); Blood Urea Nitrogen 13 mg/dL (9-16); Calcium 9.3 mg/dL (8.4-10.2); Carbon Dioxide 24 mmol/L (22-29); Chloride 105 mmol/L (96-108); Creatinine Clr Calc Pharmacy 108.5; Estimated Glomerular Filt Rate > 60; Glucose Random 108 mg/dL (60-115); Magnesium 1.8 mg/dL (1.6-2.6); Potassium 3.4 mmol/L (3.3-5.1); Sodium 139 mmol/L (135-145); Total Protein 6.9 g/dL (6.5-8.0)
[2022-07-02 20:18] LABS: COVID-19 Test Negative (Negative); IDNOW Serial# 16C4AD1C
[2022-07-02 20:24] LABS: Troponin-I High Sensitivity < 3.5 ng/L (<3.5-17.0)
[2022-07-02 20:33] LABS: TSH reflex Free T4 1.88 uIU/mL (0.32-4.0)
[2022-07-02 20:38] VITALS: BP 134/74; PULSE 71; RESP 14; O2SAT 98
[2022-07-02 21:34] LABS: Appearance Urine Clear; Color Urine Yellow; Glucose Urine UA Negative (Negative); Leukocyte Esterase Urine Negative (Negative); Nitrite Urine Negative (Negative); Specific Gravity - Urine <= 1.005 (1.005-1.025); Urine Blood Negative (Negative); Urine Ketones Negative (Negative); Urine Protein Negative (Neg-Trace)
[2022-07-02 21:51] LABS: Amphetamine Screen Urine Not Detected (Not Detect); Barbiturates, Urine Not Detected (Not Detect); Benzodiazepines Screen Urine Not Detected (Not Detect); Cannabinoid Screen Urine Not Detected (Not Detect); Cocaine Screen Urine Not Detected (Not Detect); Fentanyl, urine Not Detected (Not Detect); Opiate Screen Urine Not Detected (Not Detect); Phencyclidine Screen Urine Not Detected (Not Detect)
[2022-07-02 22:40] VITALS: BP 128/65; PULSE 76; RESP 18; O2SAT 99
== END 2022-07-02 22:40 | disposition home or self-care (01) ==
PROVIDERS: Physician Assistant; Emergency Provider Emergency Medicine; PCP Nurse Practitioner Adult Health
DX: I49.3 Ventricular premature depolarization (principal); R07.89 Other chest pain; Z20.822 Contact with and (suspected) exposure to COVID-19; Z20.828 Contact with and (suspected) exposure to other viral communicable diseases; Z79.899 Other long term (current) drug therapy
CPT/HCPCS: 36415; 71046; 80048; 80076; 80307; 81003; 83735; 84443; 84484; 85025; 85610; 85730; 87635; 93005; 99283; 99284

== ENCOUNTER → 2022-07-03 08:35 | Outpatient (BNVA) | payer OTHER, SELFPAY | PROVIDERS: PCP Nurse Practitioner Adult Health; Visit Provider Internal Medicine Cardiovascular Disease | DX: Z13.89 Encounter for screening for other disorder (principal) ==

== ENCOUNTER 2022-09-03 17:37 | Emergency (ER) | payer OTHER, SELFPAY ==
--- NOTE | ~2022-09-03 | XR_ITS ---
EXAMINATION: XR CHEST 2 VIEW CLINICAL INFORMATION: Palpitations and chest pressure COMPARISON: 07/02/2022. TECHNIQUE: PA and lateral views of the chest obtained. FINDINGS: The lungs are clear. There are no pleural effusions. The cardiomediastinal silhouette is normal. XR/XR chest 2V IMPRESSION: No active cardiopulmonary disease.
[2022-09-03 17:41] VITALS: BP 128/65; PULSE 70; RESP 18; TEMP 36.6; O2SAT 99; BMI 26.6
--- NOTE | 2022-09-03 17:44 | ED.ARRPALP ---
HPI - Arrhythmia/Palpitations General Chief Complaint: Arrhythmia/Palpitations Stated Complaint: chest palpitations Related Data Previous Rx's Medication Instructions Recorded metoprolol succinate 25 mg 25 mg PO DAILY #30 tabs 07/04/22 tablet,extended release 24 hr (Toprol XL) Allergies Allergy/AdvReac Type Severity Reaction Status Date / Time No Known Allergies Allergy Verified 07/03/22 08:49 [facility] Past Medical History Medical History PVCs (premature ventricular contractions) Family History Family History Mother Diabetes Cardiac pacemaker Social History Social History (Reviewed 07/03/22 @ 13: by Kirk Mckinney MD) Alcohol intake: never Patient Tobacco Use Status: Never used Tobacco Advance Directives: No Advance Directives Information Provided: No Physical Exam Vital Signs: Vital Signs: Last Vital Signs Temp 97.9 F 09/03/22 17:41 Pulse 70 09/03/22 17:41 Resp 18 09/03/22 17:41 BP 128/65 09/03/22 17:41 Pulse Ox 99 09/03/22 17:41 O2 Del Method Room Air 09/03/22 17:41 BMI result Body Mass Index 26.6 Course Course Course Narrative: RME-17:45PM - 32yoF with a PMHx of PVC's who is presenting to the ER with complaints of chest palpitations, feeling hot and left-sided chest pressure that started a few hours prior to arrival when she was just sitting at home. Reports she has had this in the past. She denies any other symptoms related to this. She has had normal stress test and echocardiograms. Was seen by Dr. Mckinney on 07/03/2022. Plan: Labs, EKG, chest x-ray all ordered at this time patient to be seen in the ED. Medical Decision Making Lab Data 09/03/22 18:11 09/03/22 18:11 Labs: Lab Results 09/03/22 09/03/22 09/03/22 Range/Units 18:10 18:11 18:11 WBC 6.4 (4.8-10.8) X10*3/uL RBC 3.76 L (4.20-5.50) X10*6/uL Hgb 12.3 (12.0-16.0) g/dl Hct 35.3 L (37.0-47.0) % MCV 93.9 (80.0-98.0) fL MCH 32.7 (27.0-33.0) pg MCHC 34.8 (31.0-35.0) g/dl RDW 11.8 (11.0-16.0) % Plt Count 246 (160-400) X10*3/uL MPV 9.4 (9.4-12.3) fL Immature Gran % (Auto) 0.2 (0.0-0.4) % Neut % (Auto) 47.2 (45-73) % Lymph % (Auto) 40.5 H (20-40) % [place] % (Auto) 10.2 (2-11) % Eos % (Auto) 1.6 (0-4) % Baso % (Auto) 0.3 (0-2) % Lymph # (Auto) 2.6 (1.2-4.9) X10*3/uL [place] # (Auto) 0.7 (0.1-1.2) X10*3/uL Eos # (Auto) 0.1 (0.0-0.4) X10*3/uL Baso # (Auto) 0.0 (0.0-0.2) X10*3/uL Abs Immat Gran (auto) 0.01 (0.00-0.03) X10*3/uL Absolute Neuts (auto) 3.0 (2.0-8.3) x10*3/uL Absolute Nucleated RBC 0.000 (0.0-0.012) X10*3/uL Nucleated RBC % (auto) 0.0 (0.0-0.2) /100WBC PT 11.9 (10.0-13.1) SEC INR 1.0 (0.9-1.1) Sodium (135-145) mmol/L Potassium (3.3-5.1) mmol/L Chloride (96-108) mmol/L Carbon Dioxide (22-29) mmol/L Anion Gap (12-20) BUN (9-16) mg/dL Creatinine (0.5-1.4) mg/dL Estim Creat Clear Calc Estimated GFR Random Glucose (60-115) mg/dL Calcium (8.4-10.2) mg/dL Magnesium (1.6-2.6) mg/dL Total Bilirubin (0.0-1.0) mg/dL AST (5-31) U/L ALT (0-31) U/L Alkaline Phosphatase (39-117) U/L Troponin I High Sens (<3.5-17.0) ng/L Total Protein (6.5-8.0) g/dL Albumin (3.5-5.0) g/dL Lipase (8-78) U/L Beta HCG, Quant mIU/mL Influenza Type A (PCR) NEGATIVE (Negative) Influenza Type B (PCR) NEGATIVE (Negative) RSV RNA Qual (PCR) NEGATIVE (Negative) SARS-CoV-2 RNA (RT-PCR) NEGATIVE (Negative) 09/03/22 09/03/22 09/03/22 Range/Units 18:11 18:11 18:11 WBC (4.8-10.8) X10*3/uL RBC (4.20-5.50) X10*6/uL Hgb (12.0-16.0) g/dl Hct (37.0-47.0) % MCV (80.0-98.0) fL MCH (27.0-33.0) pg MCHC (31.0-35.0) g/dl RDW (11.0-16.0) % Plt Count (160-400) X10*3/uL MPV (9.4-12.3) fL Immature Gran % (Auto) (0.0-0.4) % Neut % (Auto) (45-73) % Lymph % (Auto) (20-40) % [place] % (Auto) (2-11) % Eos % (Auto) (0-4) % Baso % (Auto) (0-2) % Lymph # (Auto) (1.2-4.9) X10*3/uL [place] # (Auto) (0.1-1.2) X10*3/uL Eos # (Auto) (0.0-0.4) X10*3/uL Baso # (Auto) (0.0-0.2) X10*3/uL Abs Immat Gran (auto) (0.00-0.03) X10*3/uL Absolute Neuts (auto) (2.0-8.3) x10*3/uL Absolute Nucleated RBC (0.0-0.012) X10*3/uL Nucleated RBC % (auto) (0.0-0.2) /100WBC PT (10.0-13.1) SEC INR (0.9-1.1) Sodium 139 (135-145) mmol/L Potassium 3.9 (3.3-5.1) mmol/L Chloride 106 (96-108) mmol/L Carbon Dioxide 23 (22-29) mmol/L Anion Gap 14 (12-20) BUN 14 (9-16) mg/dL Creatinine 0.77 (0.5-1.4) mg/dL Estim Creat Clear Calc 109.5 Estimated GFR > 60 Random Glucose 91 (60-115) mg/dL Calcium 9.0 (8.4-10.2) mg/dL Magnesium 2.1 (1.6-2.6) mg/dL Total Bilirubin 0.4 (0.0-1.0) mg/dL AST 14 (5-31) U/L ALT 14 (0-31) U/L Alkaline Phosphatase 25 L (39-117) U/L Troponin I High Sens < 3.5 (<3.5-17.0) ng/L Total Protein 7.0 (6.5-8.0) g/dL Albumin 4.1 (3.5-5.0) g/dL Lipase 26 (8-78) U/L Beta HCG, Quant < 2 mIU/mL Influenza Type A (PCR) (Negative) Influenza Type B (PCR) (Negative) RSV RNA Qual (PCR) (Negative) SARS-CoV-2 RNA (RT-PCR) (Negative) Discharge Plan Discharge Clinical Impression: Chest discomfort Patient Disposition: Elopement Prescriptions: No Action metoprolol succinate [Toprol XL] 25 mg tablet extended release 24 hr 25 mg PO DAILY Qty: 30 3RF Interventions: ED Discharge Assessment Last Done: 09/03/22 22:06 Discharge Date/Time: 09/03/22 22:08
--- NOTE | 2022-09-03 17:45 | ECG_ITS ---
Test Reason : PALPITATIONS Blood Pressure : / mmHG Vent. Rate : 061 BPM Atrial Rate : 061 BPM P-R Int : 134 ms QRS Dur : 092 ms QT Int : 402 ms P-R-T Axes : 012 052 042 degrees QTc Int : 404 ms Normal sinus rhythm Normal ECG When compared with ECG of 02-JUL-2022 19:20, No significant change was found Referred By: Helen Sanchez Electronically Signed By:JET RICE
[2022-09-03 18:23] LABS: MANUAL DIFF FLAG NO
[2022-09-03 18:24] LABS: Basophils Percent Auto 0.3 % (0-2); Eosinophils Absolute Auto 0.1 X10*3/uL (0.0-0.4); Eosinophils Percent Auto 1.6 % (0-4); Hematocrit 35.3 % (37.0-47.0); Hemoglobin 12.3 g/dl (12.0-16.0); Imm Gran Abs Auto 0.01 X10*3/uL (0.00-0.03); Imm Gran Pct Auto 0.2 % (0.0-0.4); Lymphocytes Absolute Auto 2.6 X10*3/uL (1.2-4.9); Lymphocytes Percent Auto 40.5 % (20-40); Mean Corpuscular HGB Conc 34.8 g/dl (31.0-35.0); Mean Corpuscular Hemoglobin 32.7 pg (27.0-33.0); Mean Corpuscular Volume 93.9 fL (80.0-98.0); Mean Platelet Volume 9.4 fL (9.4-12.3); Monocytes Absolute Auto 0.7 X10*3/uL (0.1-1.2); Monocytes Percent Auto 10.2 % (2-11); Neutrophils Percent Auto 47.2 % (45-73); Platelet Count 246 X10*3/uL (160-400); Red Blood Count 3.76 X10*6/uL (4.20-5.50); Red Cell Distribution Width 11.8 % (11.0-16.0); White Blood Count 6.4 X10*3/uL (4.8-10.8)
[2022-09-03 18:36] LABS: Prothrombin Time 11.9 SEC (10.0-13.1)
[2022-09-03 18:58] LABS: Alanine Aminotransferase 14 U/L (0-31); Albumin Level 4.1 g/dL (3.5-5.0); Alkaline Phosphatase 25 U/L (39-117); Anion Gap 14 (12-20); Aspartate Amino Transferase 14 U/L (5-31); Bilirubin Total 0.4 mg/dL (0.0-1.0); Blood Urea Nitrogen 14 mg/dL (9-16); Carbon Dioxide 23 mmol/L (22-29); Chloride 106 mmol/L (96-108); Creatinine Clr Calc Pharmacy 109.5; Estimated Glomerular Filt Rate > 60; Glucose Random 91 mg/dL (60-115); Lipase 26 U/L (8-78); Magnesium 2.1 mg/dL (1.6-2.6); Potassium 3.9 mmol/L (3.3-5.1); Sodium 139 mmol/L (135-145)
[2022-09-03 19:09] LABS: Troponin-I High Sensitivity < 3.5 ng/L (<3.5-17.0)
[2022-09-03 19:34] LABS: HCG Quantitative < 2 mIU/mL
[2022-09-03 19:48] LABS: Influenza A PCR NEGATIVE (Negative); Influenza B PCR NEGATIVE (Negative); Resp Syncy Virus RNA Qual PCR NEGATIVE (Negative); SARS COV2 PCR INHOUSE NEGATIVE (Negative)
== END 2022-09-03 22:08 | disposition left against medical advice (07) ==
PROVIDERS: Physician Assistant Medical; Emergency Provider Emergency Medicine; PCP Nurse Practitioner Adult Health
DX: R00.2 Palpitations (principal); I49.3 Ventricular premature depolarization; Z20.822 Contact with and (suspected) exposure to COVID-19; Z20.828 Contact with and (suspected) exposure to other viral communicable diseases; Z83.3 Family history of diabetes mellitus; Z79.899 Other long term (current) drug therapy
CPT/HCPCS: 0241U; 36415; 71046; 80053; 83690; 83735; 84484; 84702; 85025; 85610; 93005; 99283

== ENCOUNTER 2023-05-03 01:38 | Emergency (ER) | payer OTHER, SELFPAY ==
--- NOTE | 2023-05-03 | ECG_ITS ---
Test Reason : CHEST PAIN Blood Pressure : / mmHG Vent. Rate : 090 BPM Atrial Rate : 090 BPM P-R Int : 154 ms QRS Dur : 090 ms QT Int : 358 ms P-R-T Axes : 056 049 043 degrees QTc Int : 437 ms Normal sinus rhythm with sinus arrhythmia Nonspecific T wave abnormality Abnormal ECG When compared with ECG of 03-SEP-2022 18:05, Nonspecific T wave abnormality now evident in Anterior leads Referred By: Generic ED Physician Electronically Signed By:BYRON MOORE MD
[2023-05-03 01:46] VITALS: BP 153/88; PULSE 82; RESP 18; TEMP 36.6; O2SAT 99; BMI 27.2
[2023-05-03 02:02] LABS: MANUAL DIFF FLAG NO
[2023-05-03 02:03] LABS: Basophils Percent Auto 0.4 % (0-2); Eosinophils Absolute Auto 0.1 X10*3/uL (0.0-0.4); Eosinophils Percent Auto 1.4 % (0-4); Hematocrit 38.8 % (37.0-47.0); Hemoglobin 13.1 g/dl (12.0-16.0); Imm Gran Abs Auto 0.01 X10*3/uL (0.00-0.03); Imm Gran Pct Auto 0.1 % (0.0-0.4); Lymphocytes Absolute Auto 2.5 X10*3/uL (1.2-4.9); Lymphocytes Percent Auto 35.7 % (20-40); Mean Corpuscular HGB Conc 33.8 g/dl (31.0-35.0); Mean Corpuscular Hemoglobin 32.2 pg (27.0-33.0); Mean Corpuscular Volume 95.3 fL (80.0-98.0); Mean Platelet Volume 9.4 fL (9.4-12.3); Monocytes Absolute Auto 0.8 X10*3/uL (0.1-1.2); Monocytes Percent Auto 11.2 % (2-11); Neutrophils Absolute Auto 3.5 x10*3/uL (2.0-8.3); Neutrophils Percent Auto 51.2 % (45-73); Platelet Count 251 X10*3/uL (160-400); Red Blood Count 4.07 X10*6/uL (4.20-5.50); Red Cell Distribution Width 11.4 % (11.0-16.0); White Blood Count 6.9 X10*3/uL (4.8-10.8)
[2023-05-03 02:17] LABS: Alanine Aminotransferase 25 U/L (0-31); Albumin Level 4.2 g/dL (3.5-5.0); Alkaline Phosphatase 29 U/L (39-117); Anion Gap 11 (12-20); Aspartate Amino Transferase 22 U/L (5-31); Bilirubin Total 0.3 mg/dL (0.0-1.0); Blood Urea Nitrogen 16 mg/dL (9-16); Calcium 9.4 mg/dL (8.4-10.2); Carbon Dioxide 22 mmol/L (22-29); Chloride 108 mmol/L (96-108); Creatinine Clr Calc Pharmacy 106.4; Estimated Glomerular Filt Rate > 60; Glucose Random 123 mg/dL (60-115); Potassium 3.4 mmol/L (3.3-5.1); Sodium 138 mmol/L (135-145); Total Protein 7.7 g/dL (6.5-8.0)
[2023-05-03 02:26] LABS: Troponin-I High Sensitivity < 2.7 ng/L (<3.5-17.0)
[2023-05-03 02:42] VITALS: PULSE 76
[2023-05-03 02:46] VITALS: BP 136/79; PULSE 81; RESP 14; TEMP 36.8; O2SAT 100
--- NOTE | 2023-05-03 03:46 | ED.CHESTPAIN ---
HPI - Chest Pain General Chief Complaint: Chest Pain Stated Complaint: Chest Pain Time Seen by Provider: 05/03/23 03:46 Source: patient Mode of arrival: ambulatory Limitations: no limitations History of Present Illness HPI narrative: Patient has history of anxiety frequent chest pains comes here for pain on 2nd intercostal space on the right side for last 2 days had Holter monitoring on 07/01 which shows low burden PVCs and had a stress test on 07/01 which was negative chest pain increases on palpation and movement no injury no shortness of breath no fever or chills patient denies any palpitation episodes now Related Data Previous Rx's Medication Instructions Recorded metoprolol succinate 25 mg 25 mg PO DAILY #30 tabs 07/04/22 tablet,extended release 24 hr (Toprol XL) ibuprofen 600 mg tablet 600 mg PO Q6H PRN fever or pain 05/03/23 #30 tabs Allergies Allergy/AdvReac Type Severity Reaction Status Date / Time No Known Allergies Allergy Verified 07/03/22 08:49 Review of Systems Review of Systems: Yes all other systems are reviewed and are negative [facility] Past Medical History Medical History PVCs (premature ventricular contractions) Family History Family History Mother Diabetes Cardiac pacemaker Social History Alcohol intake: current Alcohol intake frequency: a few times a week Alcohol type: wine Patient Tobacco Use Status: Never used Tobacco Smoked in Last 30 Days: No Use of substances other than those prescribed or required for medical reasons: No Advance Directives: No Advance Directives Information Provided: Yes Patient : No Physical Exam Vital Signs: Vital Signs: Last Vital Signs Temp 98.3 F 05/03/23 02:46 Pulse 81 05/03/23 02:46 Resp 14 05/03/23 02:46 BP 136/79 05/03/23 02:46 Pulse Ox 100 05/03/23 02:46 O2 Del Method Room Air 05/03/23 02:46 BMI result Body Mass Index 27.2 Appearance: Alert. Oriented X3. No acute distress. ENT: Pharynx normal. Oral Mucosa moist Neck: Normal inspection. Neck supple. CVS: Normal heart rate and rhythm. Pulses normal. Tender to touch right 2nd intercostal space Respiratory: No respiratory distress. Equal air entry bilateral, no wheezing/rales/rhonchi Abdomen: Soft and nontender. Bowel sounds are present, Skin: Skin warm and dry. Normal skin color. Normal skin turgor. Extremities: No lower extremity edema. No calf tenderness Neuro: Oriented X 3. Medical Decision Making Medical Decision Making [facility] Narrative: Patient atypical chest pain clinically costochondritis had a recent stress test negative cardiac enzymes negative discharge patient home on ibuprofen Differential Diagnosis Differential Diagnoses: The differential diagnosis associated with the presentation includes ACS/palpitations/costochondritis Lab Data [facility] Lab Attestation statement: I reviewed the patient's lab results. 05/03/23 01:56 05/03/23 01:56 Labs: Lab Results 05/03/23 Range/Units 01:56 WBC 6.9 (4.8-10.8) X10*3/uL RBC 4.07 L (4.20-5.50) X10*6/uL Hgb 13.1 (12.0-16.0) g/dl Hct 38.8 (37.0-47.0) % MCV 95.3 (80.0-98.0) fL MCH 32.2 (27.0-33.0) pg MCHC 33.8 (31.0-35.0) g/dl RDW 11.4 (11.0-16.0) % Plt Count 251 (160-400) X10*3/uL MPV 9.4 (9.4-12.3) fL Immature Gran % (Auto) 0.1 (0.0-0.4) % Neut % (Auto) 51.2 (45-73) % Lymph % (Auto) 35.7 (20-40) % [place] % (Auto) 11.2 H (2-11) % Eos % (Auto) 1.4 (0-4) % Baso % (Auto) 0.4 (0-2) % Lymph # (Auto) 2.5 (1.2-4.9) X10*3/uL [place] # (Auto) 0.8 (0.1-1.2) X10*3/uL Eos # (Auto) 0.1 (0.0-0.4) X10*3/uL Baso # (Auto) 0.0 (0.0-0.2) X10*3/uL Abs Immat Gran (auto) 0.01 (0.00-0.03) X10*3/uL Absolute Neuts (auto) 3.5 (2.0-8.3) x10*3/uL Absolute Nucleated RBC 0.000 (0.0-0.012) X10*3/uL Nucleated RBC % (auto) 0.0 (0.0-0.2) /100WBC Sodium 138 (135-145) mmol/L Potassium 3.4 (3.3-5.1) mmol/L Chloride 108 (96-108) mmol/L Carbon Dioxide 22 (22-29) mmol/L Anion Gap 11 L (12-20) BUN 16 (9-16) mg/dL Creatinine 0.82 (0.5-1.4) mg/dL Estim Creat Clear Calc 106.4 Estimated GFR > 60 Random Glucose 123 H (60-115) mg/dL Calcium 9.4 (8.4-10.2) mg/dL Total Bilirubin 0.3 (0.0-1.0) mg/dL AST 22 (5-31) U/L ALT 25 (0-31) U/L Alkaline Phosphatase 29 L (39-117) U/L Troponin I High Sens < 2.7 (<3.5-17.0) ng/L Total Protein 7.7 (6.5-8.0) g/dL Albumin 4.2 (3.5-5.0) g/dL Independent Interpretation I performed an independent interpretation of an: EKG Interpretation: Normal sinus rhythm with heart rate of 90 beats per minute with sinus rhythm nonspecific ST T wave changes no acute ischemia Discharge Plan Discharge Clinical Impression: Costalchondritis Patient Disposition: Home, Self-Care Instructions: Costochondritis (ED) Additional Instructions: Take ibuprofen for pain At this time has no signs of damage to your heart chest pain is coming from the inflammation of the cartilage Prescriptions: New ibuprofen 600 mg tablet 600 mg PO Q6H PRN (Reason: fever or pain) Qty: 30 0RF No Action metoprolol succinate [Toprol XL] 25 mg tablet extended release 24 hr 25 mg PO DAILY Qty: 30 3RF
[2023-05-03 04:10] VITALS: BP 122/63; PULSE 82; RESP 20; O2SAT 99
== END 2023-05-03 04:18 | disposition home or self-care (01) ==
PROVIDERS: Emergency Provider Internal Medicine; PCP Nurse Practitioner Adult Health
DX: M94.0 Chondrocostal junction syndrome [Tietze] (principal); I49.3 Ventricular premature depolarization
CPT/HCPCS: 36415; 80053; 84484; 85025; 93005; 99283; 99285

== ENCOUNTER 2023-10-09 05:16 | Emergency (ER) | payer OTHER, SELFPAY ==
--- NOTE | 2023-10-09 | ECG_ITS ---
Test Reason : TACHYCARDIA Blood Pressure : / mmHG Vent. Rate : 095 BPM Atrial Rate : 095 BPM P-R Int : 144 ms QRS Dur : 086 ms QT Int : 346 ms P-R-T Axes : 054 036 031 degrees QTc Int : 434 ms Normal sinus rhythm Nonspecific ST abnormality Borderline ECG When compared with ECG of 03-MAY-2023 01:44, No significant change was found Referred By: Generic ED Physician Electronically Signed By:JET RICE
--- NOTE | ~2023-10-09 | XR_ITS ---
EXAMINATION: XR CHEST CLINICAL INFORMATION: Chest pain COMPARISON: The TECHNIQUE: Frontal view of the chest was obtained. FINDINGS: Lungs clear. Heart and pulmonary vessels are normal. security monitor leads are present. XR/XR chest 1V IMPRESSION: No active disease.
[2023-10-09 05:35] VITALS: BP 159/82; PULSE 101; RESP 18; TEMP 36.4; O2SAT 99; BMI 34.2
[2023-10-09 05:38] LABS: MANUAL DIFF FLAG NO
[2023-10-09 05:40] LABS: Basophils Percent Auto 0.4 % (0-2); Eosinophils Absolute Auto 0.1 X10*3/uL (0.0-0.4); Eosinophils Percent Auto 1.5 % (0-4); Hematocrit 38.6 % (37.0-47.0); Hemoglobin 13.4 g/dl (12.0-16.0); Imm Gran Abs Auto 0.01 X10*3/uL (0.00-0.03); Imm Gran Pct Auto 0.1 % (0.0-0.4); Lymphocytes Absolute Auto 2.2 X10*3/uL (1.2-4.9); Lymphocytes Percent Auto 30.3 % (20-40); Mean Corpuscular HGB Conc 34.7 g/dl (31.0-35.0); Mean Corpuscular Hemoglobin 32.6 pg (27.0-33.0); Mean Corpuscular Volume 93.9 fL (80.0-98.0); Mean Platelet Volume 9.6 fL (9.4-12.3); Monocytes Absolute Auto 0.9 X10*3/uL (0.1-1.2); Monocytes Percent Auto 11.6 % (2-11); Neutrophils Absolute Auto 4.1 x10*3/uL (2.0-8.3); Neutrophils Percent Auto 56.1 % (45-73); Platelet Count 282 X10*3/uL (160-400); Red Blood Count 4.11 X10*6/uL (4.20-5.50); Red Cell Distribution Width 11.7 % (11.0-16.0); White Blood Count 7.4 X10*3/uL (4.8-10.8)
[2023-10-09 06:04] LABS: Alanine Aminotransferase 23 U/L (0-31); Albumin Level 4.1 g/dL (3.5-5.0); Alkaline Phosphatase 35 U/L (39-117); Anion Gap 15 (12-20); Aspartate Amino Transferase 19 U/L (5-31); Bilirubin Direct < 0.2 mg/dL (0.0-0.5); Bilirubin Total 0.2 mg/dL (0.0-1.0); Blood Urea Nitrogen 13 mg/dL (9-16); Calcium 9.2 mg/dL (8.4-10.2); Carbon Dioxide 18 mmol/L (22-29); Chloride 107 mmol/L (96-108); Creatinine Clr Calc Pharmacy 111.4; Estimated Glomerular Filt Rate > 60; Glucose Random 131 mg/dL (60-115); HCG Quantitative < 2 mIU/mL; Potassium 3.8 mmol/L (3.3-5.1); Sodium 136 mmol/L (135-145); Total Protein 7.9 g/dL (6.5-8.0)
--- NOTE | 2023-10-09 08:58 | PC.NURSE ---
This RN at bedside, pt reporting drinking some wine last night, the had palpitations waking her up at 4 am. Denies SOB/pain. States that this has never happened before. No known family history. Reports that she is asymptomatic at this time. Awaiting new orders
--- NOTE | 2023-10-09 09:00 | ED.GENADULT ---
HPI - General Adult General Chief complaint: General Medical Stated complaint: elevated heart rate, body sweats Time Seen by Provider: 10/09/23 08:24 Source: patient Mode of arrival: ambulatory Limitations: no limitations History of Present Illness HPI narrative: This is a 33 year old female presenting w/ anxiety, palpitations, pvcs presenting w/ concerns of right sided cp, palpitations that lasted 2-3 minutes and then resolved. She thinks this woke her from her from her sleep. She reports this has happened to her before and it has been anxiety but she wanted to make sure she was ok. She denies a/c sob. [place] denies personal or family cardiac hx. Non smoker, no recent travel. Denies fevers, chills, cp, sob, nausea, vomiting, abd pain, headache, vision changes, dizziness, weakness. Patient reports symptoms completely resolved and are no longer present. Related Data Previous Rx's ?Medication ?Instructions ?Recorded metoprolol succinate 25 mg 25 mg PO DAILY #30 tabs 07/04/22 tablet,extended release 24 hr (Toprol XL) ibuprofen 600 mg tablet 600 mg PO Q6H PRN fever or pain 05/03/23 #30 tabs Allergies Allergy/AdvReac Type Severity Reaction Status Date / Time No Known Allergies Allergy Verified 10/09/23 05:43 Review of Systems Review of Systems: Yes all other systems are reviewed and are negative [facility] Past Medical History Attestation statement: The following information was validated with the patient. Source: old records reviewed and nursing notes reviewed Medical History PVCs (premature ventricular contractions) Family History Family History Mother Diabetes Cardiac pacemaker Social History Social History Alcohol intake: current Alcohol intake frequency: a few times a week Alcohol type: wine Patient Tobacco Use Status: Never used Tobacco Advance Directives: No Advance Directives Information Provided: No Do you have a plan to hurt others: No Plan Physical Exam ED Vital Signs: Vital Signs - 24 hr 10/09/23 05:35 10/09/23 09:31 10/09/23 10:27 Temperature 97.6 F 98.2 F 98.5 F Pulse Rate 101 H 78 92 Respiratory Rate 18 15 12 Blood Pressure 159/82 H 139/84 153/77 H Pulse Oximetry 99 100 100 Oxygen Delivery Method Room Air Room Air Room Air BMI result Body Mass Index 34.2 VSS Appearance: Alert.? Oriented X3.? No acute distress.? Head: Normocephalic, atraumatic, no step-offs or deformities Eyes: Pupils equal, round and reactive to light.? CVS: Normal heart rate and rhythm.? Pulses normal.? Respiratory: No respiratory distress.? Breath sounds normal.? Abdomen: Soft and nontender.? Skin: Skin warm and dry.? Normal skin color.? Normal skin turgor.? Extremities: No lower extremity edema.? No calf ttp. 5/5 strength to bilateral upper and lower extremities Back: No midline tenderness, no C-spine tenderness, full range of motion, no CVA tenderness bilaterally Neuro: Oriented X 3.? No motor deficit.? No sensory deficit. CN 2-12 intact Course Reevaluation(s) Reevaluation #1: CBC unremarkable. Chemistry no acute findings requiring intervention. Initial troponin negative repeat trope 24.4 nonischemic EKG D-dimer negative. I did discuss this case with cardiology who recommends trending tropes, hospital admission and cardiology consult. Hospitalist aware of admission. Plan hospital admit Time: 10:40 Medical Decision Making Medical Decision Making [facility] Narrative: 0903 33 year old female presents w/ episode of cp and palpitations that lasted 2-3 minutes around 7:30 and has since resolved PE benign Concerns for non cardiac related cp vs anxiety vs acs vs pe unstable angina. Unlikely ACS, dissection, ARDS, pneumothorax, PNA, cardiomyopathy. Unlikely metabolic derangements Plan- labs, dimer, obs No pain at this time no need for medication at this time Differential Diagnosis Differential Diagnoses: The differential diagnosis associated with the presentation includes Concerns for non cardiac related cp vs anxiety vs acs vs pe unstable angina. Unlikely ACS,, dissection, ARDS, pneumothorax, PNA, cardiomyopathy. Unlikely metabolic derangements Admission/Observation Consideration of admission/observation: Escalation of care including admission/observation considered Possible Lab Data [facility] Lab Attestation statement: I reviewed the patient's lab results. 10/09/23 05:30 10/09/23 05:30 Labs: Lab Results 10/09/23 10/09/23 Range/Units 05:30 09:35 WBC 7.4 (4.8-10.8) X10*3/uL RBC 4.11 L (4.20-5.50) X10*6/uL Hgb 13.4 (12.0-16.0) g/dl Hct 38.6 (37.0-47.0) % MCV 93.9 (80.0-98.0) fL MCH 32.6 (27.0-33.0) pg MCHC 34.7 (31.0-35.0) g/dl RDW 11.7 (11.0-16.0) % Plt Count 282 (160-400) X10*3/uL MPV 9.6 (9.4-12.3) fL Immature Gran % (Auto) 0.1 (0.0-0.4) % Neut % (Auto) 56.1 (45-73) % Lymph % (Auto) 30.3 (20-40) % [place] % (Auto) 11.6 H (2-11) % Eos % (Auto) 1.5 (0-4) % Baso % (Auto) 0.4 (0-2) % Lymph # (Auto) 2.2 (1.2-4.9) X10*3/uL [place] # (Auto) 0.9 (0.1-1.2) X10*3/uL Eos # (Auto) 0.1 (0.0-0.4) X10*3/uL Baso # (Auto) 0.0 (0.0-0.2) X10*3/uL Abs Immat Gran (auto) 0.01 (0.00-0.03) X10*3/uL Absolute Neuts (auto) 4.1 (2.0-8.3) x10*3/uL Absolute Nucleated RBC 0.000 (0.0-0.012) X10*3/uL Nucleated RBC % (auto) 0.0 (0.0-0.2) /100WBC D-Dimer High Sensitivty < 150 NG/ML Sodium 136 (135-145) mmol/L Potassium 3.8 (3.3-5.1) mmol/L Chloride 107 (96-108) mmol/L Carbon Dioxide 18 L (22-29) mmol/L Anion Gap 15 (12-20) BUN 13 (9-16) mg/dL Creatinine 0.76 (0.5-1.4) mg/dL Estim Creat Clear Calc 111.4 Estimated GFR > 60 Random Glucose 131 H (60-115) mg/dL Calcium 9.2 (8.4-10.2) mg/dL Total Bilirubin 0.2 (0.0-1.0) mg/dL Direct Bilirubin < 0.2 (0.0-0.5) mg/dL AST 19 (5-31) U/L ALT 23 (0-31) U/L Alkaline Phosphatase 35 L (39-117) U/L Troponin I High Sens < 2.7 24.4 H D (<3.5-17.0) ng/L Total Protein 7.9 (6.5-8.0) g/dL Albumin 4.1 (3.5-5.0) g/dL Beta HCG, Quant < 2 mIU/mL Critical Care Time Critical Care Time Critical Care Time: Yes Total Critical Care Time: 35 Attestation: I attest to this time spent taking care of the patient, obtaining history, physical, reviewing labs, imaging, speaking to my attending, specialist or hospitalist. Discharge Plan Discharge Clinical Impression: Chest pain, Anxiety, Palpitations, Elevated troponin Patient Disposition: Admitted As Inpatient Instructions: Chest Pain (ED) Additional Instructions: Take your medications as prescribed. If you were prescribed antibiotics today, it is important that you take your medication to their entirety, do not skip any doses, do not finish them early. Follow-up with your primary care provider this week. Return to the emergency department with new or worsening symptoms. Such as fevers, chills, chest pain, shortness of breath, nausea, vomiting, dizziness, headache, vision changes, lethargy In case of emergency call 911 Prescriptions: No Action metoprolol succinate [Toprol XL] 25 mg tablet extended release 24 hr 25 mg PO DAILY Qty: 30 3RF ibuprofen 600 mg tablet 600 mg PO Q6H PRN (Reason: fever or pain) Qty: 30 0RF Referrals: Physician,Unknown J [Primary Care Provider] - 2 days Stand Alone Forms: Work/School Release Print Language: Albanian
[2023-10-09 09:04] LABS: Troponin-I High Sensitivity < 2.7 ng/L (<3.5-17.0)
[2023-10-09 09:31] VITALS: BP 139/84; PULSE 78; RESP 15; TEMP 36.8; O2SAT 100
[2023-10-09 09:54] LABS: D Dimer High Sensitivity < 150 NG/ML
[2023-10-09 10:06] LABS: Troponin-I High Sensitivity 24.4 ng/L (<3.5-17.0)
[2023-10-09 10:27] VITALS: BP 153/77; PULSE 92; RESP 12; TEMP 36.9; O2SAT 100
[2023-10-09] MEDS: Ketorolac Tromethamine 15 MG/ML VIAL 30 MG IVPUSH (10:48)
[2023-10-09 12:01] VITALS: BP 124/74; PULSE 77; RESP 13; TEMP 36.8; O2SAT 100
[2023-10-09 12:31] LABS: Troponin-I High Sensitivity 16.2 ng/L (<3.5-17.0)
--- NOTE | 2023-10-09 14:14 | PM.EVENT ---
Event Note Date of Service: 10/09/23 Event Note: The patient was seen personally and discussed with dr Salvador who was not available to evaluate her himself in ED. She reports tachycardia followed by feeling of anxiety and chest tightness more on the right side. EKG did not show ST\T-wave changes to suggest ACS. Trop trended down. She is not taking her Metoprolol at home which she should Discussed with dr Salvador who will arrange an outpatient follow up Time Spent With Patient Time: Total time managing care of this patient today ____ minutes.
--- NOTE | 2023-10-09 14:27 | PHA.MEDREC ---
Pharmacy Consult ? Medication Reconciliation Pharmacy has completed the medication reconciliation. Spoke to patient, she said she's not on any medication.
[2023-10-09 15:02] VITALS: BP 134/79; PULSE 78; RESP 16; TEMP 37.1; O2SAT 100
== END 2023-10-10 06:42 | disposition home or self-care (01) ==
PROVIDERS: Physician Assistant; Emergency Provider Emergency Medicine
DX: R07.89 Other chest pain (principal); R79.89 Other specified abnormal findings of blood chemistry; R10.2 Pelvic and perineal pain; F41.1 Generalized anxiety disorder; F43.0 Acute stress reaction; Z79.899 Other long term (current) drug therapy
CPT/HCPCS: 36415; 71045; 80048; 80076; 84484; 84702; 85025; 85379; 93005; 96374; 99284; 99285; J1885

== ENCOUNTER → 2023-10-09 05:22 | Outpatient (BNV) | payer OTHER, SELFPAY | PROVIDERS: Emergency Provider Emergency Medicine; Visit Provider Internal Medicine | DX: R00.0 Tachycardia, unspecified (principal) | CPT/HCPCS: 93010 ==

== ENCOUNTER 2023-10-27 13:43 | Outpatient (AMB) | payer OTHER, SELFPAY ==
--- NOTE | 2023-10-27 13:59 | MHC.OFFVIS ---
Vital Signs 10/27/23 14:00 Height 5 ft 3 in Weight 172 lb 6.424 oz BMI 30.5 BP 120/62 Blood Pressure Location Lt brachial Position Sitting Pulse 71 Pulse Source Pulse Oximeter Intake Visit Reasons: [facility] f/u Per HS Medical Records Technician Required: No Allergies No Known Allergies Allergy (Verified 10/27/23 14:02) HPI HPI [facility] f/u Per HS: Details: Whitley is a 33-year-old female with cardiac evaluation early last year for chest tightness and heart palpitations. She was noted to have PVCs. She was recently seen in the emergency room with report of symptom of right-sided chest discomfort and heart palpitations that lasted 2-3 minutes and woke her from sleep. Her EKG showed no acute findings, D-dimer was negative. Initial troponin less than 2.7, repeat 24.4. She was referred to follow-up with her layaway clerk. Today she reports that she has not had recurrent right-sided chest discomfort or heart palpitations since the time of the ER visit, 10/09/2023. She does notice some shortness of breath and chest tightness that she relates to allergies. She has no chest discomfort brought on by physical activity. No presyncope, syncope, falls. No PND, orthopnea or edema. 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 She does not get much sleep, only a few hours each night. She does admit to having a glass of wine prior to the episode when she woke up with right chest discomfort and palpitations. She does not drink alcohol routinely. [facility] Medical History PVCs (premature ventricular contractions) Family History Mother Diabetes Cardiac pacemaker Social History Alcohol intake: current Alcohol intake frequency: a few times a week Alcohol type: wine Patient Tobacco Use Status: Never used Tobacco Review of Systems Const All systems reviewed & are unremarkable except as noted in HPI and below Reports fatigue ENT Denies dizziness Card Details: chest tightness. episodes of rapid heart beating. Denies chest pain, Denies chest pain at rest, Denies chest pain with activity, Reports rapid heart rate, Denies pedal edema, Denies edema, Denies leg edema, Denies lightheadedness, Denies palpitations, Reports dyspnea, Reports dyspnea on exertion and Denies orthopnea Resp Denies cough, Reports dyspnea and Reports dyspnea on exertion GI Denies hematochezia and Denies change in stool character Musc Denies abnormal gait, Denies limited range of motion, Denies muscle cramps, Denies muscle weakness, Denies numbness, Denies radiating pain into limb, Denies stiffness and Denies tingling Neuro Denies abnormal gait, Denies dizziness, Denies numbness and Denies tingling Endo Reports fatigue and Denies palpitations Physical Exam Vital Signs: Last Vital Signs Pulse 71 10/27/23 14:00 BP 120/62 10/27/23 14:00 BMI result Body Mass Index 30.5 Const General: cooperative, healthy appearing, comfortable and no acute distress Orientation/consciousness: patient oriented x3 Neck Neck: Yes normal visual inspection and Yes no JVD Resp Effort & Inspection: normal respiratory effort Auscultation: clear to auscultation bilaterally, no rales, no rhonchi and no wheezes Cardio Jugular venous distension: no JVD Rate: regular rate Rhythm: regular rhythm Heart sounds: S1 normal heart sound present, S2 normal heart sound present, no murmurs and no rubs Neuro General: patient oriented x3 Extrem General: Yes normal to inspection and No no pedal edema Psych Appearance: grossly normal Mental Status: mental status grossly normal Speech and movement: Normal speech and movement present Assessment & Plan Assessment & Plan (1) Chest tightness: Code(s): R07.89 - Other chest pain Category: Medical Plan: Reports of right-sided chest discomfort occurring at the time of heart palpitations prompting ER visit without noted arrhythmia. She did have a rise in troponin from less than 2.7 up to 24.4. She was evaluated by the hospitalist on that day and was not felt to warrant hospital admission. She has not had recurrent right-sided chest discomfort or heart palpitations since that time. She does have some chest tightness along with mild shortness of breath which she relates to allergies. EKG done on 10/09/2023 shows normal sinus rhythm with nonspecific ST abnormality, rate 95. Last echocardiogram was done on 06/27/2022 was normal study. With her reports of chest discomfort and noted elevation in troponins, will check an exercise stress test to ensure there is no ischemia. Will order a Holter monitor to evaluate for any concerning arrhythmia. It is possible she had a brief tachyarrhythmia which could account for the rise in troponin. Less likely to have significant coronary artery disease due to her young age and low cardiac risk profile. Reviewed the benefits of adequate rest H night. Avoidance of alcohol, caffeinated beverages if possible. Signs and symptoms of angina reviewed. Emergency care if needed for symptoms. Cardiology follow-up in 4-6 weeks, sooner if needed. (2) Heart palpitations: Code(s): R00.2 - Palpitations Category: Medical Plan: Episode of heart palpitations that woke her from sleep. ER evaluation with finding of slight rise in troponin. Checking Holter (3) PVCs (premature ventricular contractions): Code(s): I49.3 - Ventricular premature depolarization Category: Medical Plan: Holter monitor done 06/18/2022 showed sinus rhythm with average heart rate 69 and occasional PVCs, low burden. Plan Time spent on chart review, documentation, interview and assessment Orders: Orders ECG 3 day holter monitor 10/27/23 I49.3 - Ventricular premature depolarization, R00.2 - Palpitations, R07.89 - Other chest pain CA stress test 10/27/23 I49.3 - Ventricular premature depolarization, R00.2 - Palpitations, R07.89 - Other chest pain Coding Level of Care Code Est Pt Level 4 (71228) Diagnoses Chest tightness R07.89 Heart palpitations R00.2 PVCs (premature ventricular contractions) I49.3 Time Spent (min) 28
[2023-10-27 14:00] VITALS: BP 120/62; PULSE 71; BMI 30.5
== END 2023-10-27 14:39 | disposition home or self-care (01) ==
PROVIDERS: Visit Provider Nurse Practitioner Family
DX: R07.89 Other chest pain (principal); R00.2 Palpitations; I49.3 Ventricular premature depolarization
CPT/HCPCS: 99214

== ENCOUNTER → 2023-10-27 13:43 | Outpatient (BNVA) | payer OTHER, SELFPAY | PROVIDERS: Visit Provider Nurse Practitioner Family ==

== ENCOUNTER → 2023-12-04 09:42 | Outpatient (REF) | payer OTHER, SELFPAY ==
--- NOTE | 2023-12-04 09:44 | CA_ITS ---
Acquisition Time: 2023-12-04 09:53:17 Total Exercise Time: 00:09:06 Test Indications: PALPITATIONS CHEST PAIN Medications: Protocol: JERAMY Max HR: 184 BPM 97% of Pred: 188 BPM Max BP: 188/086 mmHG Max Work Load: 10.2 METS Exercise stress test exercise 9 min 6 sec of Jeramy protocol achieving 97% MPHR, without anginal symptoms, without arrhyhthmias, with normotensive response to exercise, without EKG changes.Test reviewed with Dr. Mckinney Referred By: Luz Rae Overread By: Kourtney Pace
--- NOTE | 2023-12-04 09:44 | HM_ITS ---
Conclusion: 1. Patient was monitored for total period of 2 days and 22 hours 2. Baseline was normal sinus rhythm with average heart of 72 beats per minute 3. No significant pauses or arrhythmias noted 4. No patient reported events MTDD
== END ==
LOC: HO.CARD 09:42
PROVIDERS: Visit Provider Nurse Practitioner Family
DX: R07.89 Other chest pain (principal); R00.2 Palpitations; I49.3 Ventricular premature depolarization
CPT/HCPCS: 93017; 93242

== ENCOUNTER → 2023-12-04 09:44 | Outpatient (BNV) | payer OTHER, SELFPAY | PROVIDERS: Visit Provider Nurse Practitioner | DX: R00.1 Bradycardia, unspecified (principal) | CPT/HCPCS: 93016; 93018; 93244 ==

== ENCOUNTER 2024-01-05 12:37 | Outpatient (AMB) | payer OTHER, SELFPAY ==
--- NOTE | 2024-01-05 12:59 | MHC.OFFVIS ---
Vital Signs 01/05/24 13:00 Height 5 ft 3 in Weight 174 lb 2.643 oz BMI 30.8 BP 128/62 Blood Pressure Location Lt brachial Position Sitting Pulse 75 Pulse Source Pulse Oximeter Intake Visit Reasons: f/up holter/ ett Field Hand Required: No Allergies No Known Allergies Allergy (Verified 01/05/24 13:02) Medication List - Last Reconciled 01/05/24 by LATASHA Villarreal metronidazole 500 mg PO BID HPI HPI f/up holter/ ett: Details: Whitley is a 33-year-old female with cardiac evaluation early last year for chest tightness and heart palpitations. She was noted to have PVCs. She was recently seen in the emergency room with report of symptom of right-sided chest discomfort and heart palpitations that lasted 2-3 minutes and woke her from sleep. Her EKG showed no acute findings, D-dimer was negative. Initial troponin less than 2.7, repeat 24.4. She was referred to follow-up with her bioinformatics research technician. On last visit exercise stress test and Holter monitor were ordered and she now presents for follow-up. Today she reports that she has been doing well since her last visit in October. She tells me that when she drinks more than 1 glass of wine she will notice some discomfort in her chest. It is worse at times when she lays down. She then drinks a home remedy for acid reflux and this helps. She does not get the symptom if she avoids alcohol. No chest discomfort brought on by exertional activities. No concerning shortness of breath, PND, orthopnea or edema. No palpitations, lightheadedness, presyncope, syncope, falls. She reports good activity tolerance. 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 She does not drink alcohol routinely. [facility] Medical History PVCs (premature ventricular contractions) Family History Mother Diabetes Cardiac pacemaker Social History Alcohol intake: current Alcohol intake frequency: a few times a week Alcohol type: wine Patient Tobacco Use Status: Never used Tobacco Review of Systems Const All systems reviewed & are unremarkable except as noted in HPI and below ENT Denies dizziness Card Denies chest pain, Denies chest pain at rest, Denies chest pain with activity, Denies rapid heart rate, Denies pedal edema, Denies edema, Denies leg edema, Denies lightheadedness, Denies palpitations, Denies dyspnea, Denies dyspnea on exertion and Denies orthopnea Resp Denies cough, Denies dyspnea and Denies dyspnea on exertion GI Denies hematochezia and Denies change in stool character Musc Denies abnormal gait, Denies limited range of motion, Denies muscle cramps, Denies muscle weakness, Denies numbness, Denies radiating pain into limb, Denies stiffness and Denies tingling Neuro Denies abnormal gait, Denies dizziness, Denies numbness and Denies tingling Endo Denies palpitations Physical Exam Vital Signs: Last Vital Signs Pulse 75 01/05/24 13:00 BP 128/62 01/05/24 13:00 BMI result Body Mass Index 30.8 Const General: cooperative, healthy appearing, comfortable and no acute distress Orientation/consciousness: patient oriented x3 Neck Neck: Yes normal visual inspection Resp Effort & Inspection: normal respiratory effort Auscultation: clear to auscultation bilaterally, no crackles, no rales, no rhonchi and no wheezes Cardio Jugular venous distension: no JVD Rate: regular rate Rhythm: regular rhythm Heart sounds: S1 normal heart sound present, S2 normal heart sound present, no murmurs and no rubs Neuro General: patient oriented x3 Extrem General: Yes normal to inspection and No no pedal edema Psych Appearance: grossly normal Mental Status: mental status grossly normal Speech and movement: Normal speech and movement present Assessment & Plan Assessment & Plan (1) Chest tightness: Code(s): R07.89 - Other chest pain Category: Medical Plan: Reports of right-sided chest discomfort and heart palpitations prompting October 2023 ER visit. No noted arrhythmia. She did have a rise in troponin from less than 2.7 up to 24.4. She was evaluated by the hospitalist on that day and was not felt to warrant hospital admission. EKG done on 10/09/2023 shows normal sinus rhythm with nonspecific ST abnormality, rate 95. Last echocardiogram was done on 06/27/2022 was normal study. She then underwent an exercise stress test on 12/04/2023 with exercise 9 minutes, no anginal symptoms and no EKG changes of ischemia. She wore a Holter monitor on 12/04/2023 for 3 days showing sinus rhythm, no significant arrhythmia. Today she reports that she will get chest discomfort after drinking wine. It is sometimes worsened by laying down. She drinks a home remedy for acid reflux which she says relieves her symptom. Informed her that her symptom is likely GI related. She tells me she is going to have GI evaluation. Recommend avoidance of wine ingestion at this time. She has no exertional symptoms. Test results reviewed with her in detail. Signs and symptoms of true angina discussed. Offered reassurance that she has low cardiac risk profile. Cardiology follow-up as needed. (2) PVCs (premature ventricular contractions): Code(s): I49.3 - Ventricular premature depolarization Category: Medical Plan: Holter monitor done 06/18/2022 showed sinus rhythm with average heart rate 69 and occasional PVCs, low burden. Repeat Holter as above showing no significant pauses or arrhythmias. Last echo showed normal EF. PVCs in the setting of normal EF are benign. (3) Heart palpitations: Code(s): R00.2 - Palpitations Category: Medical Plan: Episode of heart palpitations that woke her from sleep. ER evaluation with finding of slight rise in troponin. Stress test and Holter as above. No significant findings. Plan Time spent on chart review, documentation, interview and assessment Coding Level of Care Code Est Pt Level 3 (46116) Diagnoses Chest tightness R07.89 PVCs (premature ventricular contractions) I49.3 Heart palpitations R00.2 Time Spent (min) 22
[2024-01-05 13:00] VITALS: BP 128/62; PULSE 75; BMI 30.8
== END 2024-01-05 13:25 | disposition home or self-care (01) ==
PROVIDERS: Visit Provider Nurse Practitioner Family
DX: R07.89 Other chest pain (principal); I49.3 Ventricular premature depolarization; R00.2 Palpitations
CPT/HCPCS: 99213

== ENCOUNTER → 2024-01-05 12:37 | Outpatient (BNVA) | payer OTHER, SELFPAY | PROVIDERS: Visit Provider Nurse Practitioner Family ==

== ENCOUNTER 2025-05-17 13:53 | Outpatient (AMB) | payer OTHER, SELFPAY ==
[2025-05-17 13:57] VITALS: BP 148/62; PULSE 76; BMI 31.5
--- NOTE | 2025-05-17 13:57 | MHC.OFFVIS ---
Vital Signs 05/17/25 13:57 Height 5 ft 3 in Weight 177 lb 11.081 oz BMI 31.5 BP 148/62 H Blood Pressure Location Lt brachial Position Sitting Pulse 76 Pulse Source Monitor Intake Visit Reasons: ongoing chest palpitations Core Cutter Required: No Allergies No Known Allergies Allergy (Verified 05/17/25 14:00) Medication List - Last Reconciled 05/17/25 by Luz Rae, BENJIE-C metoprolol succinate ER 25 mg PO DAILY omeprazole 20 mg PO DAILY HPI HPI ongoing chest palpitations: Details: Whitley is a 33-year-old female with prior cardiac evaluation for chest discomfort and heart palpitation with finding of PVCs. She was managed conservatively and now presents with report of new chest discomfort and heart palpitations. Her last prior visit to this office was 01/05/2024. Today she reports that she has been getting left-sided chest discomfort that is tender to palpation. She also has discomfort in her mid chest that she says comes from the inside. This symptom occurs randomly including at rest and with activity. She has no discomfort with range of motion of her left arm. Her prior right-sided chest discomfort has fully resolved. She does feel heart palpitations that cause her much concern. No concerning shortness of breath, PND, orthopnea or edema. No palpitations, lightheadedness, presyncope, syncope, falls. 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 [facility] Medical History PVCs (premature ventricular contractions) Family History Mother Diabetes Cardiac pacemaker Social History Alcohol intake: current Alcohol intake frequency: a few times a week Alcohol type: wine Patient Tobacco Use Status: Never used Tobacco Review of Systems Const All systems reviewed & are unremarkable except as noted in HPI and below ENT Denies dizziness Card Reports chest pain, Reports chest pain at rest, Reports chest pain with activity, Denies rapid heart rate, Denies pedal edema, Denies edema, Denies leg edema, Denies lightheadedness, Denies palpitations, Denies dyspnea, Denies dyspnea on exertion and Denies orthopnea Resp Denies cough, Denies dyspnea and Denies dyspnea on exertion GI Denies hematochezia and Denies change in stool character Musc Denies abnormal gait, Denies limited range of motion, Denies muscle cramps, Denies muscle weakness, Denies numbness, Denies radiating pain into limb, Denies stiffness and Denies tingling Neuro Denies abnormal gait, Denies dizziness, Denies numbness and Denies tingling Endo Denies palpitations Physical Exam Vital Signs: Last Vital Signs Pulse 76 05/17/25 13:57 BP 148/62 H 05/17/25 13:57 BMI result Body Mass Index 31.5 Const General: cooperative, healthy appearing, comfortable and no acute distress Orientation/consciousness: patient oriented x3 Neck Neck: Yes normal visual inspection Chest Other: tenderness to palpation of left upper chest Resp Effort & Inspection: normal respiratory effort Auscultation: clear to auscultation bilaterally, no crackles, no rales, no rhonchi and no wheezes Cardio Rate: regular rate Rhythm: regular rhythm Heart sounds: S1 normal heart sound present, S2 normal heart sound present, no gallops, no murmurs and no rubs Neuro General: patient oriented x3 Extrem General: Yes normal to inspection Psych Appearance: grossly normal Mental Status: mental status grossly normal Speech and movement: Normal speech and movement present Office Procedures EKG Details: Today, read by me, normal sinus rhythm, rate 76, Qtc 425ms [id number], Complete Assessment & Plan Assessment & Plan (1) Chest discomfort: Code(s): R07.89 - Other chest pain Category: Medical Plan: Current reports of atypical chest discomfort. Prior cardiac evaluation without significant findings. She has low cardiac risk profile. Her EKG today shows normal sinus rhythm with no acute ST or T-wave abnormalities. Due to patient concern and persistence of symptom will order a stress echocardiogram for further evaluation. - signs and symptoms of true angina reviewed. (2) Heart palpitations: Code(s): R00.2 - Palpitations Category: Medical Plan: Episode of heart palpitations that occur during the day and night, causing concern. Holter monitor done 06/18/2022 showed sinus rhythm with average heart rate 69 and occasional PVCs, low burden. Repeat Holter last year showed no significant pauses or arrhythmias. Last echo showed normal EF. Will recheck Holter monitor in the setting of recurrent heart palpitations. Reviewed reduction in caffeinated beverages, maintain good hydration, activity as tolerated. (3) PVCs (premature ventricular contractions): Code(s): I49.3 - Ventricular premature depolarization Category: Medical Plan: As above Plan I reviewed the patient's EKG results with her, explaining that the tracing was normal, which is reassuring. I explained that while some of her chest pain appears to be musculoskeletal given the tenderness on palpation, we need to rule out a cardiac cause for her exertional symptoms and palpitations. I recommended a stress echocardiogram to get ultrasound images of her heart before and after exercise to assess its function, and a Holter monitor to wear for a couple of days to evaluate her heart rhythm. I informed her that central scheduling will call her to arrange these tests, and we will follow up in about six weeks to review the results, though she will be called sooner if there are any significant findings. I also advised her that she can try taking ibuprofen for the chest wall pain and confirmed it is safe for her to continue her magnesium supplement. Orders: Orders CA echo stress exercise Today R00.2 - Palpitations, R07.89 - Other chest pain ECG 3 day holter monitor Today R00.2 - Palpitations, R07.89 - Other chest pain Patient Instructions: - We are ordering two tests to check your heart: a stress echocardiogram (an ultrasound of your heart with exercise) and a Holter monitor (a small device you will wear for a couple of days to track your heart's rhythm). - Someone from our scheduling department will call you to set up appointments for these tests. - Continue to take your metoprolol medication as it can help with episodes of a fast heartbeat. - You can try taking [id number] Motrin (ibuprofen) to see if it helps with the chest pain that hurts when you press on it. - We will schedule a follow-up appointment in about 6 weeks to discuss your test results. - You will receive a phone call with your test results once they are available. Patient was informed and verbally consented to the use of an ambient scribe for clinic note documentation during this visit. Visit time spent on chart review, interview, assessment, orders, documentation. Coding Level of Care Code Est Pt Level 4 (84454) Complex visit Add On G2211 Diagnoses Chest discomfort R07.89 Heart palpitations R00.2 PVCs (premature ventricular contractions) I49.3 CPT Codes EKG - CPT: 43039-[id number], Complete ([id number]) Time Spent (min) 28
--- OUTSIDE RECORDS SUMMARY | 2025-05-17 19:52 | XMS_ITS | Encounter Summary ---
Author Organization [facility] Address [address] [place] [id number] Phone Care Team Providers Care Window Trimmer Name Role Phone Unknown, Unknown Primary Care Provider Fariba Quiroz NP Primary Care Pro vider Encounter Details Date Type Department Care Team (Late st Contact Info) Description 02/24/2020 Procedure Pass [facility] [address] [place] [address] Social History Tobacco Use Types Packs/Day Years Used Date Smoking Tobacco: Never Smokeless Tobacco: Never Alcohol Use Standard Drinks/Week Comments Not Currently 0 (1 standard drink = 0.6 oz pur e alcohol) occasional Comments Yes Sex and Gender Information Value Date Recorded Sex Assigned at Not on file Legal Sex Female 9:01 PM EDT Gender Identity Not on file Sexual Orientation Not on file Occupation Industry Job Start Date Job End Date Working at [employer] Not on file Not on file Not on file documented as of this encounter Plan of Treatment Not on file documented as of this encounter Visit Diagnoses Not on filedocumented in this encounter Care Teams Window Trimmer Relationship Specialty Start Date End Date Unknown, Unknown, PCP - General 02/08/20 08/08/22 Fariba Dunn NP [address] [place] [address] PCP - General Nurse Practitioner 08/09/22 documented as of this encounter Additional Source Comments The information contained in this document represents components of the legal health record. It is not the complete legal health record.[facility]
--- OUTSIDE RECORDS SUMMARY | 2025-05-17 19:52 | XMS_ITS | Clinical Summary ---
Author Organization [facility] Address [address] [address] Phone Care Team Providers Care Clip Wrapper Name Role Phone Fariba Dunn CONTACT LENS FITTER Primary Care Pro vider Allergies Active Allergy Reactions Criticality Noted Date Comments Shellfish Containing Products Diarrhea,Swelling,Nausea and/or Vomiting 04/04/2017 Medications Medication-Free TextIndications :Multivitamins Indications: Multivitamins Active cholecalciferol (VITAMIN D3) 10,000 unit tablet Take 10,000 Units by mouth daily. Active ibuprofen (ADVIL,MOTRIN) 800 MG tabletIndicatio ns:Unwanted with plans for termination Take 1 tablet (800 mg total) by mouth every 6 (six) hours as needed for pain (specific location in comments). 10 tablet 5 Active oxyCODONE 5 MG immediate release tabletIndicatio ns:Unwanted with plans for termination Take 1 tablet (5 mg total) by mouth every 4 (four) hours as needed for pain (specific location in comments). 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 Diastasis recti 05/22/2020 Resolved Problems Problem Noted Date Diagnosed Date Resolved Date Normal intrauterine , antepartum 02/29/2020 05/22/2020 Premature rupture of membran es with onset of labor within 24 hours of rupture 02/29/2020 020 History of section complicating 02/28/2020 05/22/2020 Previous delivery a ffecting 07/23/2019 05/22/2020 Overview (12/09/2019): Previous Low transverse C/S at [facility] [place] in 2017 for FTP Got to 8 cm but did not progress and further. Baby was in a persistent OP lie 12/09/19 Full counseling done. Pt signed consent for RCS, but knows she can change her mind. Assessment & Plan (02/10/2020 12:09 PM EDT): Counseled again today per her request, will attempt TOLAC if she goes into labor, C/s at 40 weeks if not Assessment & Plan (01/11/2020 1:03 PM EDT): Migdalia has some questions about TOLAC - she is still leaning toward csection but does wish for the shorter recovery time after vaginal delivery. We reviewed risks/pros/cons; she will consider and let us know of her decision next visit. Assessment & Plan (12/09/2019 11:52 AM EDT): The patient presents to discuss the option of MERLYN after C/S vs scheduled C/S. We discussed the risk of uterine rupture with a prior C/S as approximately 0.5-1%. We discussed the risks to both mother and baby should this occur. Maternal risks include hemorrhage, transfusion, infection, and injury to internal organs. or risks include decreased blood supply to fetus, which could result in hypoxia, neurologic injury, or . We discussed the management recommendations for TOLAC including continuous monitoring, IV insertion in labor, and blood work on admission. We discussed that in patients whose first C/S was for non-repetitive indications, such as breech or abnormal heart rate pattern before labor, there is about a 70-75% chance of having a successful . We discussed that in patients whose C/S was for a possibly recurrent indication like failure to progress or failure to descend there is a lower chance of success, approximately 50%. Success rates are best with spontaneous labor. We discussed limited tools for induction of labor in a patient attempting a TOLAC. We discussed that a successful would be safest for both mom and baby, that a scheduled C/S would be second safest, and that a failed trial of labor followed by a C/S holds the most risk. We discussed the difficulty in predicting who will have a successful . Options for awaiting labor and trial of vs scheduled C/S were discussed with the patient. All questions were answered. Pt signed consent for RCS, but knows she can change her mind. Assessment & Plan (10/08/2019 12:31 PM EDT): Reviewed TOLAC consent form and talked with Migdalia about plan of care for delivery. She is leaning toward TOLAC but would like to review consent form more fully. Will bring back and sign at n.v. Assessment & Plan (07/23/2019 9:49 PM EST): Prior C/S for arrest of dilation - baby OP Need to look at notes Brief discussion of risks/benefits of vs Repeat C/S Needs full counseling Obesity affecting in first trimester 07/23/2019 02/28/2020 Overview (07/23/2019): Obesity in BMI at Intake 30.44 Date Obesity POC discussed 07/22/19 BMI > 55 consider transfer BMI at any time during > 55 consider transfer (bring to group) BMI 45-55 high risk list * If BMI 45 or greater discuss policy w patient * Hgb A1C or glucose tolerance test * Nutrtion counseling * 11-20lb weight gain * Growth sono q 4 wks if fundal height not reliable, after 28 weeks * Induction only if indicated * PP lovenox according to guidelines Assessment & Plan (07/23/2019 9:54 PM EST): Discussed appropriate weight gain in , reviewed healthy nutrition options, encouraged exercise Encounter for supervision of normal in multigravida 07/22/2019 05/22/2020 Overview (02/28/2020): [facility] Group PN care? * Rh Positive GC/Chlam neg Tdap * Flu * Hgb 11.8 GTT 122 GBS * PPBC * screening NT low risk Assessment & Plan (12/23/2019 10:15 AM EDT): A virtual visit was used during the COVID-[address] of an in-person visit. This real-time interactive virtual clinical encounter was conducted using telephone-only technology from clinic. The patient participated in the visit from home. Consent for virtual care, including informing the patient that insurance will be billed, and that in-person care is available in case of emergencies or as needed otherwise, was discussed at the time of scheduling. Migdalia is feeling well. Baby is very active. No questions or concerns. Has been feeling more hungry the last couple of weeks. Healthy diet in reviewed. Reviewed normal 28 week labs. Will have in person visit at 34 weeks. Offer Tdap at that time. Assessment & Plan (12/09/2019 11:24 AM EDT): Migdalia is doing well, no concerns. Pt reports she thinks she has GDM because when she eats sugar, especially in the AM, her mood dips. Discussed eating more protein instead, and that we'd call her if her GTT is abnl. CBC/GTT in process. Discussed TDaP - she would like today. Discussed FM, PTL, PEC, and labor precautions. +FM. Denies LOF, VB, UCs. NV virtual in two weeks. Assessment & Plan (10/08/2019 12:44 PM EDT): Doing well, just had normal anatomy scan. Having another boy. Discussed CBE, she will skip this time around. Reviewed schedule of visits w/r/t Covid-19, she is prepared to do GTT/CBC and have TDAP at n.v. +FM care following delivery 06/20/2017 12/24/2017 Immunizations Immunization Administration Dates Next Due HPV,quadrivalent 10/02/2015,07/31/2015 Hep A,ped/adol,3 dose 02/19/2011 Hepatitis B 01/18/2011 MMR 01/18/2011 Tdap 12/09/2019,02/06/2017,02/19/2011 Varicella 01/18/2011 Family History Medical History Relation Comments Stomach cancer Father Diabetes Mother Hyperlipidemia Mother Hypertension Mother Relation Status Comments Brother 1 Alive Brother 2 Alive Brother 3 Alive Brother 4 Alive Brother 5 Alive Father Alive Maternal Grandfather Maternal Grandmother Mother Alive Paternal Grandfather Paternal Grandmother Sister 1 Alive Sister 2 Alive Sister 3 Alive Social History Tobacco Use Types Packs/Day Years Used Date Smoking Tobacco: Never Smokeless Tobacco: Never Alcohol Use Standard Drinks/Week Comments Not Currently 0 (1 standard drink = 0.6 oz pur e alcohol) occasional Education Answer Date Recorded Are you interested in more education? Not on tesha e 10/04/2022 Are you concerned about learning? Not on file 10/04/2022 No 10/04/2022 No 10/04/2022 Digital Access Answer Date Recorded No 11/04/2022 No 11/04/2022 Reliable internet access at home? Not on file 11/04/2022 Device with a working camera? Not on file Comments No Sex and Gender Information Value Date Recorded Sex Assigned at Not on file Legal Sex Female 9:01 PM EDT Gender Identity Not on file Sexual Orientation Not on file Occupation Industry Job Start Date Job End Date Working at [employer] Not on file Not on file Not on file Last Filed Vital Signs Vital Sign Reading Time Taken Comments Blood Pressure 100/60 11/29/2024 2:27 PM EDT Pulse 76 05/27/2022 3:13 PM EST Temperature 36.7 C (98.1 F) 05/27/2022 3:13 PM EST Respiratory Rate 20 05/27/2022 3:13 PM EST Oxygen Saturation 100% 05/27/2022 3:13 PM EST Inhaled Oxygen Concentration 100% 02/29/2020 9 :36 PM EDT Weight 79.8 kg (176 lb) 10/05/2024 2:57 PM EDT Height 167.6 cm (5' 6 ) 10/05/2024 2:57 PM EDT Body Mass Index 28.41 10/05/2024 2:57 PM EDT Plan of Treatment Health Maintenance Due Date Last Done Comments DEPRESSION SCREENING 2003 INFLUENZA VACCINE (#1) 2025 02/28/2022 COVID-19 VACCINE (2024- season) 2025 PAP SMEAR 03/08/2027 03/08/2024, 10/0 06/2020, 01/20/2019, Additional history exists Adult Td,Tdap Booster 12/08/2029 12/09/2019 , 02/06/2017, 02/19/2011 HEPATITIS A VACCINES Aged Out 02/19/2011 No long er eligible based on patient's age to complete this topic HEPATITIS C SCREENING Completed 08/16/2019, 020 HIV ONE-TIME SCREENING (18-65 YEARS) Completed 08/16/2019 SMOKING STATUS SCREENING (Once After 26 Yrs) Completed 10/05/2024 HIB VACCINES Aged Out No longer eligi ble based on patient's age to complete this topic MENINGOCOCCAL VACCINES (ACWY) Aged Out No longer eligible based on patient's age to complete this topic MENINGOCOCCAL VACCINES (B) Aged Out N o longer eligible based on patient's age to complete this topic PNEUMOCOCCAL VACCINES (0-49 years) Aged Out No longer eligible based on patient's age to complete this topic Medical Devices Not on file Procedures Procedure Name Priority Date/Time Associated Diagnosis Comments PAP TEST Routine 03/08/2024 12:00 AM EDT HEPATITIS C ANTIBODY, QUALITATIVE Routine 08/16/2019 4:45 PM EDT Supervision of high risk in first trimester from Last 3 Months or Most Recently Relevant to Health Maintenance Results * Pap Test (03/08/2024 12:00 AM EDT) Report [address] [address] Heel Sander: Coni Bhatt MD VASCULAR MANAGER Cytology Report FINAL DIAGNOSIS A. PAP SMEAR (THIN PREP) CE: SPECIMEN ADEQUACY: Satisfactory for evaluation; transformation zone present. INTERPRETATION: NEGATIVE FOR INTRAEPITHELIAL LESION OR MALIGNANCY. Trichomonas vaginalis. This specimen was analyzed by the automated ThinPrep Imaging System ([employer] and manually rescreened by a swatch folder and/or pathologist. Electronically Signed Out By: MD Shikha Shahid CT(ASCP) By his/her signature above, the pathologist listed as making the Final Diagnosis certifies that he/she has personally reviewed this case and confirmed or corrected the diagnosis. The Pap test is a screening test primarily for squamous cancers and precursors and has associated false-negative and false-positive results. New technologies such as liquid-based preparations may decrease but will not eliminate all false-negative results. Regular sampling and follow-up of unexplained clinical signs and symptoms are recommended to minimize false negative results. PROCEDURES/ADDENDA HPV Testing (Requested) Ordered Date: 03/09/2024 A. PAP SMEAR (THIN PREP) CE: Human Papilloma Virus Test NEGATIVE for high-risk Human Papilloma Virus types 16, 18, 45 and the Other high risk probe set (Includes 31, 33, 35, 39, 51, 52, 56, 58, 59, 66, 68) Note: Testing performed by [employer] HR-HPV analysis. Clinical correlation is advised. This HPV test was performed at [facility], [address] [place] [address]. This test has been FDA approved for both SurePath and ThinPrep cervical cytology specimens. The accuracy and precision of this test for all other specimen sources has been verified in the Cytopathology Laboratory of the [facility] and has not been cleared or approved by the U.S. Food and Drug Administration. Clinical correlation is advised. CLINICAL HISTORY Date of Last Menstrual Period: 02-22-2024 Other Clinical Conditions: Screening Pap Abnormal PAP: LSIL, 2020 SPECIMEN SOURCE A: PAP SMEAR (THIN PREP) CE Patient Name: MIGDALIA CHIU : 1990 (Age: 33) Sex: F Institution: [facility] [place] Location: [facility] Date of Collection: 03/08/2024 Date of Reported: 03/11/2024 13:23 Results to: Fariba Dunn NP [facility] Final Diagnosis A. PAP SMEAR (THIN PREP) CE: SPECIMEN ADEQUACY: Satisfactory for evaluation; transformation zone present. INTERPRETATION: NEGATIVE FOR INTRAEPITHELIAL LESION OR MALIGNANCY. Trichomonas vaginalis. This specimen was analyzed by the automated ThinPrep Imaging System ([employer] and manually rescreened by a swatch folder and/or pathologist. [facility] Results\Inte rpretation A. PAP SMEAR (THIN PREP) CE: Human Papilloma Virus TestNEGATIVE for high-risk Human Papilloma Virus types 16, 18, 45 and the Other high risk probe set (Includes 31, 33, 35, 39, 51, 52, 56, 58, 59, 66, 68)Note: Testing performed by [employer] HR-HPV analysis. Clinical correlation is advised. This HPV test was performed at [facility], [address] [place] [address]. This test has been FDA approved for both SurePath and ThinPrep cervical cytology specimens. The accuracy and precision of this test for all other specimen sources has been verified in the Cytopathology Laboratory of the [facility] and has not been cleared or approved by the U.S. Food and Drug Administration. Clinical correlation is advised. [facility] Conversion Type (Conversion Source) 03/08/2024 03/09/2024 8:57 AM EDT us Fariba Dunn CONTACT LENS FITTER CYTOLOGY ORDERABL ES Edited Result - Final [facility] [address] [place] [address] * Hepatitis C antibody, qualitative (08/16/2019 4:45 PM EDT) HCV NON-REACTIV E NON-REACTI VE [facility] Blood 08/16/2019 4:45 PM EDT 08/16/2019 4:53 PM EDT us Katie Blanton CN LAB BLOOD BKR ORDERABLES Final Result [address] [id number] from Last 3 Months or Most Recently Relevant to Health Maintenance Insurance [facility] Advance Directives For more information, please contact: [phone] (9AM - 5PM Cynthia/[facility], Friday-Friday) * Full Code (Latest Code Status on File) Date Activated Date Inactivated Comments 02/29/2020 12:42 PM Question Answer Comments Code Status Confirmed With: Patient * Full Code Date Activated Date Inactivated Comments 02/28/2020 5:05 PM 02/29/2020 11:55 AM Question Answer Comments Code Status Confirmed With: Patient * Full Code (Presumed) Date Activated Date Inactivated Comments 04/04/2017 9:56 AM 12/15/2018 2:02 AM Care Teams Clip Wrapper Relationship Specialty Start Date End Date Fariba Dunn NP [address] [place] [id number] [email or web address] PCP - General Nurse Practitioner 08/09/22 Additional Source Comments The information contained in this document represents components of the legal health record. It is not the complete legal health record.[facility]
== END 2025-05-17 14:30 | disposition home or self-care (01) ==
LOC: HO.HCS 13:53
PROVIDERS: PCP Physician Assistant; Visit Provider Nurse Practitioner Family
DX: R07.89 Other chest pain (principal); R00.2 Palpitations; I49.3 Ventricular premature depolarization
CPT/HCPCS: 93010; 99214; G2211

== ENCOUNTER → 2025-05-17 13:53 | Outpatient (BNVA) | payer OTHER, SELFPAY | PROVIDERS: PCP Physician Assistant; Visit Provider Nurse Practitioner Family | DX: R07.89 Other chest pain (principal); R00.2 Palpitations; I49.3 Ventricular premature depolarization; Z79.899 Other long term (current) drug therapy | CPT/HCPCS: 93005 ==